=== PATIENT | male | born 1950 | race Caucasian/White ===

== ENCOUNTER 2019-10-19 15:30 | Inpatient (IN) | payer MEDICARE, OTHER, SELFPAY ==
[2019-10-19 15:51] VITALS: BP 134/89; PULSE 83; RESP 16; TEMP 36.9; O2SAT 97; BMI 27.1
[2019-10-19 16:54] VITALS: BMI 27.1
[2019-10-19 17:02] VITALS: BMI 27.1
[2019-10-19] MEDS: Jevity 1.5 1,000 ML 60 ML GT (17:59)
[2019-10-19 19:25] VITALS: BP 143/92; PULSE 78; RESP 16; TEMP 36.8; O2SAT 96
[2019-10-19 19:30] VITALS: PULSE 78; RESP 16; O2SAT 96; BMI 27.1
[2019-10-19 19:51] VITALS: O2SAT 98
[2019-10-19] MEDS: Carvedilol 12.5 MG Tablet GT (19:54)
[2019-10-19] MEDS: Senna/Docusate Sodium 1 Tablet 2 TABLET PO (19:54)
[2019-10-19] MEDS: Atorvastatin Calcium 40 MG Tablet GT (19:54)
[2019-10-19] MEDS: QUEtiapine 25 MG Tablet GT (19:55)
[2019-10-19] MEDS: cloNIDine HCl 0.2 MG Tablet GT (19:55)
[2019-10-19] MEDS: Acetaminophen 325 MG Tablet 650 MG PO (20:15)
--- NOTE | 2019-10-20 01:30 | NURSING ---
1930 pt is restless in the bed rolling around and putting sheet and pillows on the floor . pt assisted in using the urinal and voided 100c of clear strong smelling noble urine. bladder scan showed 473cc in the pt bladder. clinical findings completed and pt reports that he is having flank pain and tylenol given as per order 1999 pt continues to be restless in the bed with tube feed wrapped under his body and arm. pt repositioned and tube feed straightened, pt sticking feet and legs out the rails and calling out for family, staff assurance pt that he was safe and family was at home and knew were he was. pt repositioned for comfort 2029 pt remains restless and reports flank pain improved at this time. pt assisted with repositioning and pillow and sheet put back on the bed for pt . 2099 pt appears to be be sleeping 0 pt restless and checked by booth supervisor for incontinence, pt is dry at this time 2200 sheet and pillow placed back on the bed and call light in reach pt awake and stated that the wolves were getting his dogs 2300pt check for incontinence and remains dry resting with eyes closed 0000 pt restless at this time and reports that he is uncomfortable, pt had hob and foot of bed up in high positions, bed repositioned to hob at 30degrees and hob and foot locked out 0100 pt noted to have a moderate incontinence of urine in the bed, pt cleansed and bladder scan completed and value was 384cc. pt reports having discomofort in the his bladder area, rn aware and pt was straight cathed for 400cc of strong smelling clear noble urine. pt reports that he is feeling better. pt washed and bed linens changed with call light in reach
--- NOTE | 2019-10-20 05:32 | NURSING ---
Reviewed and agree with math tutor documentation and charting.
[2019-10-20 06:05] LABS: Absolute Lymphocyte Count 1.69 X10^3/uL (0.83-4.51); Absolute Neutrophil Count 8.5 X10^3/uL (2.0-7.7); Basophil# 0.08 X10^3/uL; Basophil% 0.7 % (0-1); Eosinophil# 0.22 X10^3/uL; Eosinophils% 1.9 % (0-5); Hematocrit 43.8 % (40-54); Hemoglobin 13.9 g/dL (13.0-16.5); Lymphocyte # 1.69 X10^3/ul (4.0); Lymphocyte % 14.3 % (19-41); Mean Corp Hgb Conc 31.7 g/dL (32-36); Mean Corpuscular Hgb 29.5 pg (27.0-32.0); Mean Platelet Vol. 10.9 fl (6.2-12.0); Monocyte# 1.07 X10^3/uL; Monocyte% 9.1 % (0-10); NRBC Flagged by Analyzer 0 % (0-5); Neutrophil # 8.52 X10^3/uL (2.7-7.7); Neutrophil % 72.1 % (47-70); Platelet Count 440 K/mm3 (150-450); RBC Distribution Width CV 14.1 % (11.6-14.6); Red Blood Count 4.71 M/mm3 (4.6-6.2); White Blood Count 11.8 K/mm3 (4.4-11.0)
[2019-10-20 06:37] LABS: ALB/GLOB Ratio 0.6 RATIO (0.9-2.4); AST(SGOT) 49 U/L (15-37); Alanine Aminotransfer ALT/SGPT 76 U/L (16-61); Alkaline Phosphatase 180 U/L (45-117); Anion Gap 7 (5-15); BUN 27 mg/dL (7-18); BUN/Creat Ratio 43.1 RATIO (10-20); Calcium,Total 9.7 mg/dL (8.5-10.1); Chloride 101 mmol/L (98-107); Creatinine, Serum 0.63 mg/dL (0.70-1.30); EST Glomerular Filtration Rate 135 mL/min (>60); Est Glom Filt Rate - Afr Amer 163 mL/min (>60); Estimated Creatinine Clearance 76.52 ml/min; Globulin 5.1 g/dL (2.2-4.2); Glucose 105 mg/dL (74-106); Magnesium 2.5 mg/dL (1.6-2.6); Phosphorus 3.9 mg/dL (2.5-4.9); Potassium 3.9 mmol/L (3.5-5.1); Protein, Total 8.1 g/dL (6.4-8.2); Sodium Level 137 mmol/L (136-145)
--- NOTE | 2019-10-20 06:54 | NURSING ---
pt continues to be restless and moving about in the bed. pt glasses were found on the floor, staff places the glasses on the overbed table. pt had yet to void since being straight cathed at 0100, current bladder scan was 309
[2019-10-20 06:57] VITALS: O2SAT 96
[2019-10-20 08:57] VITALS: BP 147/98; PULSE 82; RESP 16; TEMP 36.3; O2SAT 96
[2019-10-20] MEDS: cloNIDine HCl 0.2 MG Tablet GT ×2 (09:50→21:22)
[2019-10-20] MEDS: Aspirin 81 MG TAB.CHEW GT (09:50)
[2019-10-20] MEDS: Senna/Docusate Sodium 1 Tablet 2 TABLET PO (09:51)
[2019-10-20] MEDS: Carvedilol 12.5 MG Tablet GT ×2 (09:51→21:22)
[2019-10-20] MEDS: NYSTATIN 500,000 UNIT/5 ML UDC 500000 UNIT PO ×2 (09:52→14:07)
[2019-10-20] MEDS: QUEtiapine 25 MG Tablet 12.5 MG PO (09:52)
[2019-10-20] MEDS: Jevity 1.5. 1,000 ML Bottle 250 ML GT ×3 (14:00→21:23)
--- NOTE | 2019-10-20 16:10 | CASEMGMT ---
Social Work Discussed code status with pt. Pt would like to be DNR-CCA, no intubation. Nursing notified. Kailee Woody, [employer]
--- NOTE | 2019-10-20 16:26 | PCM.HP.STD ---
Problem List (1) Atrial fibrillation Status: Acute Comment: new diagnosis (2) Acute right MCA stroke Status: Acute Comment: O 10/07/19 initially a R MCA ischemic/possibly embolic CVA and then hemorrhagic conversion after TPA (3) Status post administration of tPA (rtPA) in a different facility within the last 24 hours prior to admission to current facility Status: Acute Comment: 10/07/19 (4) Hypertension Status: Chronic Qualifiers: Hypertension type: essential hypertension Qualified Code(s): I10 - Essential (primary) hypertension (5) Stenosis of left vertebral artery Status: Chronic Comment: without infarction (6) Intracranial hemorrhage Status: Acute Comment: following TPA (7) Alcohol dependence Status: Chronic (8) Internal carotid artery occlusion Status: Acute Qualifiers: Laterality: right Qualified Code(s): I65.21 - Occlusion and stenosis of right carotid artery Comment: presumed embolic (9) SAMMY (obstructive sleep apnea) Status: Chronic (10) Status post insertion of percutaneous endoscopic gastrostomy (PEG) tube Status: Acute (11) Abnormal LFTs Status: Acute (12) Subarachnoid hemorrhage Status: Acute (13) Dysphagia Status: Acute Qualifiers: Dysphagia type: oropharyngeal phase Qualified Code(s): R13.12 - Dysphagia, oropharyngeal phase (14) Coronary artery disease Status: Chronic (15) Presence of bare metal stent in right coronary artery Status: Acute Comment: 2002 (16) Edentulous Status: Chronic (17) Encephalopathy acute Status: Acute Comment: due to CVA with agitation/behavioral disturbance requiring Seroquel (18) 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 Possibly due to Seroquel. K and Mag are WNL. (21) Urine retention Status: Acute (22) Left-sided neglect Status: Acute History of Present Illness Date of Admission: 10/19/19 Chief Complaint: debility due to R MCA CVA and hemorrhagic conversion after TPA with Left side weakness, oropharyngeal dysphagia, encephalopathy with behavioral disturbance The patient is a 69 year old M with a past medical history of hypertension, alcohol dependence, nicotine dependence (quit smoking and now is using Nicorette gum) , coronary artery disease with history of inferior wall NC and bare-metal stent to the right coronary artery in 2002 and recent R MCA CVA. On 10/07/19 he had a fall at home and struck his head. He presented to the ED with left side weakness and a non-contrasted CT brain showed no hemorrhage. The initial NIH was 6. He received TPA and then had intracerebral hemorrhage and SAH. He was transferred to the neuro intensive care unit at [facility]. No intervention was indicated. He was noted to be in AF and he had no hx of AF prior to the stroke. Troponin was elevated. He was seen by cardiology and had a stress test that was negative for ischemia. The EF was 53%. An ECHO showed an EF of 55% with an RVSP of 34 which is consistent with mild pulmonary HTN. EKG showed LAHB, PVC's and an old IWMI. He developed an encephalopathy with behavioral disturbance and was placed on Seroquel. He had severe dysphasia and a PEG tube was inserted. He was transferred to the IPRU at [facility] on 10/19/19 for 3 hours of therapy daily to restore him at or near his prior level of function/independence. A HGBA1C at [facility] was 5.6%. We did not receive results of a lipid panel. Lab in the AM at [facility] on 10/20/19 showed an elevated white blood cell count at 11.8 with 72.1% neutrophils and 1.9% immature granulocytes. Hemoglobin was normal at 13.9 and platelets were also within normal limits. MCV and MCH were both normal. Potassium was 3.9. BUN was elevated at 27 with a creatinine of 0.63 and a BUN/creatinine ratio of 43.1. Magnesium and calcium are within normal limits. The AST is elevated at 49 and the ALT is 76 with an alkaline phosphatase of 180. Total bilirubin was within normal limits. All paperwork from [facility] was reviewed. Medication reconciliation was reviewed. Patient is currently on aspirin 81 mg daily, atorvastatin 40 mg daily, I will 12.5 mg twice daily, clonidine 0.2 mg twice daily, Seroquel 25 mg twice daily and Isosource tube feed. Past Medical History Past Medical History (Chronic Problems): Chronic Problems Hypertension (Chronic) Stenosis of left vertebral artery (Chronic) without infarction Alcohol dependence (Chronic) SAMMY (obstructive sleep apnea) (Chronic) Coronary artery disease (Chronic) Edentulous (Chronic) Mass of perirectal soft tissue (Chronic) R buttock adjacent to the anus......tells me he had an infection drained at the site and there is a cicatrix there Allergies alteplase Adverse Reaction (Severe, Unverified 10/19/19 17:21) PT UNSURE OF REACTION intracrainal hemorrhage Home Medications: Ambulatory Orders Medication Instructions Recorded Albuterol Aerosols [Ventolin 3 ml INHALATION Q4H PRN PRN 10/19/19 Aerosols] Aspirin [Aspirin, Baby] 81 mg NG DAILY 10/19/19 Atorvastatin Calcium [Lipitor] 40 mg NG QHS 10/19/19 Carvedilol [Coreg] 12.5 mg GT BID 10/19/19 Clonidine HCl [Catapres] 0.2 mg GT BID 10/19/19 Quetiapine Fumarate [Seroquel] 25 mg GT QHS 10/19/19 Surgical History: - - drainage of a R perirectal infection - remote. PEG tube insertion October 2019 for dyspghagia due to stroke Psychiatric History: No pertinent psych hx Lives: Spouse/ Significant Other - His 's name is Pati Smoking Status: Never smoker Tobacco Use: Non-smoker Alcohol: Heavy - tells me that he quit 1 month ago and can not tell me how much he was drinking Drugs: None - *Family History Maternal History Items: - - pt can not tell me about his FH at this time Review of Systems Constitutional: Reports: Weakness. Denies: Chills, Fever, Weight Change Eyes: Denies: Vision Change HEENT: Reports: Difficulty Swallowing. Denies: Head Aches, Nasal Congestion, Sinus Congestion, Sinus Drainage, Sore Throat Cardiovascular: Denies: Chest Pain, Chest Tightness, Edema, Light Headedness, Orthopnea, Palpitations Respiratory: Reports: Shortness of Breath - in the mornings he tells me. Denies: Cough, Shortness of breath at rest, Sputum production Gastrointestinal: Denies: Abdominal Pain, Constipation, Diarrhea, Dyspepsia, Nausea, Vomiting Genitourinary: Reports: Retention. Denies: Dysuria Musculoskeletal: Denies: Joint Pain, Joint Tenderness Skin: Reports: - - he has a left taylor-rectal mass at sit of previous drainage of infection. There is also a nodule at the top proximal to the superior aspect of the gluteal cleft with a small white dot...NT with no DC. Denies: Jaundice, Rash, Wounds Neurological: Reports: Balance problems, Change in Speech, Confusion. Denies: Focal weakness, Headaches, Numbness, Tingling, Tremor, Seizures Psychiatric: Denies: Anxiety, Depression, Homicidal Ideations, Suicidal Ideations Hematologic/ Lymphatic: Denies: Easy Bruising, Easy Bleeding VTE Information - Inpt Only VTE Present on Admission: No VTE Mechan Device Prophylaxis: SCD's, Knee High ELOINA Hose VTE Pharm Prophylaxis ordered?: No Reason prophylaxis not ordered:: Treatment Not Indicated - had recent intracerebral bleed and SAH Patient Problems: Active and Suspected Problems Atrial fibrillation (Acute) new diagnosis Acute right MCA stroke (Acute) O 10/07/19 initially a R MCA ischemic/possibly embolic CVA and then hemorrhagic conversion after TPA Status post administration of tPA (rtPA) in a different facility within the last 24 hours prior to admission to current facility (Acute) 10/07/19 Intracranial hemorrhage (Acute) following TPA Internal carotid artery occlusion (Acute) presumed embolic Status post insertion of percutaneous endoscopic gastrostomy (PEG) tube (Acute) Abnormal LFTs (Acute) Subarachnoid hemorrhage (Acute) Dysphagia (Acute) Presence of bare metal stent in right coronary artery (Acute) 2002 Encephalopathy acute (Acute) due to CVA with agitation/behavioral disturbance requiring Seroquel Stage II pressure sore (Acute) Abdomen-around the PEG tube QT prolongation (Acute) acute....not mentioned on the EKG done at [facility]. Possibly due to Seroquel. K and Mag are WNL. Urine retention (Acute) Left-sided neglect (Acute) - Physical Exam Vitals/I&O's: Vital Signs Temp Pulse Resp BP Pulse Ox 97.4 F L 82 16 147/98 H 96 10/20/19 08:57 10/20/19 08:57 10/20/19 08:57 10/20/19 08:57 10/20/19 08:57 Oxygen Delivery Method Room Air Weight: 179 lb 3.773 oz Body Mass Index (BMI) 27.1 Intake and Output for Last 24 Hours 10/18/19 10/19/19 10/20/19 23:59 23:59 23:59 Intake Total 300 / 300 300 / 300 Output Total 200 / 200 400 / 400 Balance 100 / 100 -100 / -100 General: Alert, Cooperative, No apparent distress, Well developed, Well nourished, Disoriented - he is oriented to person. He thought it was May but, he knew it was 2019 HEENT: Atraumatic, PERRLA, EOMI, Normocephalic Oral: Dry Mucosa, - - he has some white discoloration on the sides of the tongue but, he denies painful tongue Neck: Supple, No JVD, No Nodes, No Nuchal Rigidity, Trachea Midline, Carotid Bruit, Right - soft Lungs: Clear to auscultation, - - He is lying flat in bed and he is not tachypneic and has no conversational dyspnea. Cardiovascular: Normal S1, Normal S2, No murmurs, Irregular Rate, No rub noted, No Gallop, - - EKG shows atrial fibrillation/flutter at a rate of [address] and T wave changes. There is poor R wave progression from V1 through V3. The QTC is prolonged at 495 ms. Left axis deviation Abdomen: Bowel Sounds Present, Soft, Non Tender, Non-Distended, - - he has an erosion at the superior pole of the PEG which appears to be due to pressure from the abdominal binder on the PEG. There is no erythema and it is non-tender. No purulent DC and no odor Extremities: No clubbing, No cyanosis, No edema, No Calf Tenderness, Diminished Peripheral Pulses - The dorsalis pedis pulses are diminished bilaterally however the posterior tibial pulses are strong bilaterally. Radial pulses are 3/3 bilaterally. Skin: No rashes, - - There is a nodule at the superior end of the gluteal cleft on the midline with a small white dot in the center. No discharge could be expressed and the nodule is nontender. There is a cicatrix in the left perianal area and there is a mass at this site and the patient states that he had a prior infection and it was drained.The mass is not fluctuant and there is no erythema or increased warmth to touch Musculoskeletal: No Muscle Wasting Lymphatic: No Cervical, Supraclavicular, or Inguinal Adenopathy Neurological: Cranial nerves II-XII grossly intact, - - Alert: YES LOC/Orientation: How old: did not know What month: said May and it is october Dysarthria: mild LOC Commands: Opens eyes: yes Make a fist: yes Facial palsy: none Best Gaze (horitzontal): intact Visual catherine: intact with no demonstrable defect Motor Left ARM : could not lift off the bed Motor Left LEG: could not lift off the bed.....he was able to rotate the hip and he had plantar flexion and dorsiflexion but they are both weak Motor Right ARM: 5/5 Motor Right LE/5 Sensation: he has decreased sensation on the left side Limb ataxia: can not assess the arm.......he did not have ataxia with the left leg Visual catherine: intact Neglect: He has left side neglect of the Left arm and leg but, not the Left face Babinski: did not check Psych/Mental Status: Appropriate, Flat Affect Laboratory Results 10/20/19 05:41: WBC 11.8 H, RBC 4.71, Hgb 13.9, Hct 43.8, MCV 93.0, MCH 29.5, MCHC 31.7 L, RDW Std Deviation 48.0 H, RDW Coeff of Misty 14.1, Plt Count 440, MPV 10.9, Immature Gran % (Auto) 1.900 H, Neut % (Auto) 72.1 H, Lymph % (Auto) 14.3 L, [place] % (Auto) 9.1, Eos % (Auto) 1.9, Baso % (Auto) 0.7, Absolute Neuts (auto) 8.5 H, Absolute Lymphs (auto) 1.69, Nucleated RBC % 0 10/20/19 05:41: Sodium 137, Potassium 3.9, Chloride 101, Carbon Dioxide 29.0, Anion Gap 7, BUN 27 H, Creatinine 0.63 L, Estim Creat Clear Calc 76.52, Est GFR (MDRD) Af Amer 163, Est GFR (MDRD) Non-Af 135, BUN/Creatinine Ratio 43.1 H, Glucose 105, Calcium 9.7, Phosphorus 3.9, Magnesium 2.5, Total Bilirubin 0.50, AST 49 H, ALT 76 H, Alkaline Phosphatase 180 H, Total Protein 8.1, Albumin 3.0 L, Globulin 5.1 H, Albumin/Globulin Ratio 0.6 L Current Medications Acetaminophen (Tylenol) 650 mg PO Q6H PRN PRN PRN Reason: Pain Score 1-10/10 Last Admin: 10/19/19 20:15 Dose: 650 mg Documented by: Albuterol Sulfate (Ventolin Aerosols) 2.5 mg INHALATION Q4H PRN PRN PRN Reason: SOB/Wheezing Aspirin (Aspirin, Baby) [address] [facility] Last Admin: 10/20/19 09:50 Dose: 81 mg Documented by: Atorvastatin Calcium (Lipitor) [address] [facility] Last Admin: 10/19/19 19:54 Dose: 40 mg Documented by: Bisacodyl (Dulcolax) 10 mg RECTAL .PRN X 1 PRN PRN Reason: Constipation Carvedilol (Coreg) 12.[address] [facility] Last Admin: 10/20/19 09:51 Dose: 12.5 mg Documented by: Clonidine (Catapres) 0.[address] [facility] Last Admin: 10/20/19 09:50 Dose: 0.2 mg Documented by: Enteral Nutritional Formula (Jevity 1.5) 250 ml GT 6X/DAY [facility] Last Admin: 10/20/19 14:00 Dose: 250 ml Documented by: Magnesium Hydroxide (Milk Of Magnesia) 30 ml PO .PRN X 1 PRN PRN Reason: Constipation Nystatin (Nystatin) 500,000 unit PO 4X/DAY [facility] Last Admin: 10/20/19 14:07 Dose: 500,000 unit Documented by: Quetiapine Fumarate (Seroquel) 37.[address] [facility] Quetiapine Fumarate (Seroquel) 12.[address] [facility] Last Admin: 10/20/19 09:52 Dose: 12.5 mg Documented by: Senna/Docusate Sodium (Senokot-S, Taylor-Colace) [address] [facility] Last Admin: 10/20/19 09:51 Dose: 2 tablet Documented by: Assessment/Plan All Active Problems Atrial fibrillation (Acute) Acute right MCA stroke (Acute) Status post administration of tPA (rtPA) in a different facility within the last 24 hours prior to admission to current facility (Acute) Intracranial hemorrhage (Acute) Internal carotid artery occlusion (Acute) Status post insertion of percutaneous endoscopic gastrostomy (PEG) tube (Acute) Abnormal LFTs (Acute) Subarachnoid hemorrhage (Acute) Dysphagia (Acute) Presence of bare metal stent in right coronary artery (Acute) Encephalopathy acute (Acute) Stage II pressure sore (Acute) QT prolongation (Acute) Urine retention (Acute) Left-sided neglect (Acute) Impressions 1. post stroke debility with Left side weakness, dysphagia, dysarthria 2. R MCA M1 branch embolic CVA - received TPA 3. Intracerebral hemorrhage and SAH after receiving TPA - did not require any surgical intervention 4. PEG insertion for severe dysphagia 5. encephalopathy with behavioral disturbance 6. AF/flutter - new diagnosis 7. HTN 8. hx of Alcohol use/abuse......tells me that he quit 1 month ago 9. Pressure sore at the PEG site 10. Left taylor-rectal mass at the site of I&D for infection 11. urine retention 12. leukocytosis with a left shift 13. dehydration with a BUN/CREAT ratio of 43.1 14. Left vertebral artery stenosis without infarction 15. Obstructive sleep apnea 16. Abnormal LFTs 17. Coronary artery disease with history of inferior wall NC and a bare-metal stent in the right coronary artery in 2002 18. Edentulous-has dentures but they are at home 19. Nodule at the proximal end of the gluteal cleft 20. QTc prolongation - continue to monitor since he is on Seroquel. PLAN PT for gait stability OT for ADL's ST for evaluation Analgesics as needed Bowel protocol Fall precautions Assess for Anxiety/Depression GI prophylaxis not indicated at this time. Patient has no history of peptic ulcer disease and has no complaints. DVT prophylaxis with SCDs and ELOINA escalante. Follow up with neurology, cardiology and PCP following DC from [facility] Rehab Lipid profile in the AM Repeat MRI of the brain in 4 weeks and if bleeding is stable then can start OAC Find out from his if he ever had a sleep study and if he has CPAP at home and also how much he drinks. He did not sleep well last night and has been confused and restless today....will increase the Seroquel to 37.5 mg at HS.......he had 12.5 mg this morning and was better able to cooperate with therapy after that. Change the tube feeds to Jevity 1.5 and begin bolus feedings rather than continuous feedings to facilitate working with therapy. IF the urine residuals continue to be > 250cc will insert a miranda Check a UA and urine culture - he had a miranda at [facility] nothing per mouth for now Repeat an EKG on Thursday Inpatient E&M: 15686 Init Hosp L3
[2019-10-20 17:00] VITALS: BMI 27.1
--- NOTE | 2019-10-20 17:27 | EKG12_ITS ---
Test Reason : AM EKG Blood Pressure : / mmHG Vent. Rate : 088 BPM Atrial Rate : 340 BPM P-R Int : 000 ms QRS Dur : 088 ms QT Int : 412 ms P-R-T Axes : 000 -23 044 degrees QTc Int : 498 ms Atrial fibrillation Nonspecific ST and T wave abnormality Prolonged QT Abnormal ECG Confirmed by RUBY NELSON, GAYE ([id number]), brands editor ADRIEL BRADEN ([id number]) on 10/25/2019 11:00:20 AM Referred By: JAYNA Confirmed By:GAYE BELTRAN MD
--- NOTE | 2019-10-20 19:45 | NURSING ---
PT STRAIGHT CATHED WITHOUT DIFFICULTY FOR 200 ML SK CLOUDY JUNO URINE. SPECIMEN SENT. DR DORANTES INFORMED THAT PT HAS A #8 HEADACHE. OK TO GIVE PT TYLENOL FOR PAIN.
[2019-10-20 19:46] LABS: Bacteria 0 SEEN /hpf (None Seen); Mucous, Urine 0 SEEN /hpf (<or=2+); Red Blood Cells-Urine 0 SEEN /hpf (0-5); White Blood Cells 0 SEEN /hpf (0-5)
[2019-10-20 19:50] LABS: Color, Urine Yellow (Yellow); Glucose, Dipstick Normal (Normal); Ketone-Dipstick Negative (Negative); Leukocyte Esterase-Dipstick Negative /ul (Negative); Nitrite-Dipstick Negative (Negative); Occult Blood-Urine Negative /ul (Negative); Protein-Dipstick Negative (Negative); Specific Gravity, Urine 1.015 (1.002-1.030); Urine Bilirubin Dipstick Negative (Negative); Urine Clarity Sl. Cloudy (Clear); Urine Urobilinogen 8 mg/dl (Normal)
[2019-10-20] MEDS: Acetaminophen 325 MG Tablet 650 MG PO (19:52)
[2019-10-20 20:04] LABS: Amorphous Sediment 2+ PHOS; Squamous Epithelial Cells - UA 0-5 SEEN /hpf (0-5)
[2019-10-20] MEDS: 0.9% Normal Saline 1,000 ML 125 ML IV (20:04)
[2019-10-20 20:29] VITALS: BP 139/93; PULSE 95; RESP 18; TEMP 36.8; O2SAT 95
[2019-10-20] MEDS: QUEtiapine 25 MG Tablet 37.5 MG GT (21:21)
[2019-10-20] MEDS: Atorvastatin Calcium 40 MG Tablet GT (21:22)
[2019-10-21] MEDS: 0.9% Normal Saline 1,000 ML 125 ML IV (03:00)
[2019-10-21] MEDS: Haloperidol 1 MG Tablet SL (03:15)
--- NOTE | 2019-10-21 03:24 | NURSING ---
PT RESTLESS IN BED. HAS PULLED IV POLE ONTO BED NEXT TO HIM. NO SIGNS OF INJURY.PT DENIES THAT POLE HIT HIM AND DENIES PAIN. ORIENTED TIME PERSON, PLACE AND MONTH. PT PLACED ON BEDPAN AND PRODUCES VERY SMALL AMT OF SOFT BROWN STOOL. MEDICATED WITH HALDOL.
[2019-10-21] MEDS: Jevity 1.5. 1,000 ML Bottle 250 ML GT ×6 (05:06→19:57)
[2019-10-21 05:37] VITALS: BP 122/67; PULSE 81
--- NOTE | 2019-10-21 06:00 | NURSING ---
ORTHOSTATICS INITIATED. PT WITH GREAT DIFFICULTY SITTING ON SIDE OF BED WITH 2 STAFF. BP MACHINE UNABLE TO OBTAIN SITTING BP AFTER MULTIPLE ATTEMPTS, PT BECOMING NAUSEATED AND DIZZY. RETURNED TO SUPINE POSITION WITH RELIEF.
[2019-10-21 06:34] LABS: Anion Gap 7 (5-15); BUN 25 mg/dL (7-18); BUN/Creat Ratio 43.6 RATIO (10-20); Calcium,Total 8.9 mg/dL (8.5-10.1); Chloride 106 mmol/L (98-107); Cholesterol 96 mg/dL (200); Creatinine, Serum 0.57 mg/dL (0.70-1.30); EST Glomerular Filtration Rate 150 mL/min (>60); Est Glom Filt Rate - Afr Amer 181 mL/min (>60); Estimated Creatinine Clearance 76.52 ml/min; Glucose 113 mg/dL (74-106); High Density Lipoprotein 23 mg/dL; Sodium Level 136 mmol/L (136-145); Triglycerides 102 mg/dL; Very Low Density Lipoprotein 20 mg/dL (5-40)
[2019-10-21] MEDS: QUEtiapine 25 MG Tablet 12.5 MG GT (07:41)
[2019-10-21] MEDS: Carvedilol 12.5 MG Tablet GT ×2 (07:41→23:12)
[2019-10-21] MEDS: cloNIDine HCl 0.2 MG Tablet GT ×2 (07:41→23:12)
[2019-10-21] MEDS: Aspirin 81 MG TAB.CHEW GT (07:41)
[2019-10-21 09:18] VITALS: BP 132/68; PULSE 83; RESP 18; TEMP 36.7; O2SAT 96
--- NOTE | 2019-10-21 10:00 | NURSING ---
Called PCP office Dr Lorenzo to verify patients allergies. They have no allergies on file for patient since patient is a poor historian. Office aware of new allergy reported from prior hospital.
--- NOTE | 2019-10-21 12:37 | PCM.RU.PYE ---
Admission Information Primary Diagnosis:: debility due to R MCA stroke Status Changes from Prescreening?: No changes Identified Actual Problem List:: Cognitve Impr/Memory Loss, Bladder Incontinence, Alteration in Sleep, Mobility Impaired, Self Care Deficit, Alteration-Leisure Activ. Potential Problem List:: DVT, Bleeding, Infection, UTI, Aspiration, Falls, Skin Integrity, Depression Risk of Complications DVT: ELOINA Hose, Sequential Compression Device Bleeding: Monitor Lab Values, Nursing to Teach Precautions for anti-coagulation therapy., Wound, if applicable, to be assessed every shift., Stroke patients assessed for lethargy or change in status. Infection: Clinical Staff to Monitor for S/S of infection:, S/S of infection include fever, redness, warmth, etc. Urinary Tract Infection: Monitor for frequency, burning, discomfort, or incontinence., Nursing will obtain urine sample for urinalysis and C&S when ordered. Aspiration: Clinical staff will monitor for coughing, drooling, congestion., Speech will evaluate swallowing and dsyphasia., Nursing will monitor patient swallowing during meals. Falls: Patient will be evaluated for Fall Precautions, Patient will be placed on Fall Precautions as indicated per protocol. Skin Breakdown: Nursing will assess skin daily using assessment tool., Nursing will place on Skin Breakdown Precautions as indicated. Pain: Clinical staff will assess patient's pain level per protocol., Medications will be given, if needed, and the pain level reassessed., Other methods: Massage, distraction, decrease stimulus, etc. used PRN. Plan of Care Patient requires physician specializing in physical medicine and rehab oversight to provide close medical supervision of rehab issues including: Pain Management, Sleep Problems, Bowel and Bladder, Medical and co-morbidity Management, DVT prophylaxis, Rehabilitation Leadership, Coordination of treatment team Patient needs Physical Therapy: For a minimum of 1 hour, At least 5 out of 7 days Patient needs Physical Therapy to improve:: Mobility, Mobility, Mobility, Strengthening, Transfers, Stretching, ROM, Endurance, Stairs, Gait, Balance Patient needs Occupational Therapy: For a minimum of 1 hour, At least 5 out of 7 days Patient needs Occupational Therapy to improve ADL's incl.: Eating, Grooming, Bathing, Dressing, Toileting, Toilet transfers, Community Reintegration, Higher functioning activities, Household tasks, Adaptive Equipment, Splinting, Other activities as determined Patient requires speech therapy: For a minimum of 1 hour, At least 5 out of 7 days Patient requires speech therapy for: Swallowing, Cognition, Language Skills, Compensatory Strategies Patient requires 24/ Rehabilitation Nursing for: Pain Issues, Identifying and preventing risk factors, Monitoring and reporting current medical conditions, Assisting with ambulation, transfer, and all ADL's, Teaching patients about disease process and medications, Family teaching, Providing safe environment, Bowel and Bladder Issues, Skin integrity, Medication Management Patient needs Application Packager/ Case Management for: Discharge Planning, Arranging Home Equipment or Services, Family Interventions Patient needs Dietary and Nutrition Services for: Adequate Nutrition, Nutritional Supplements, Nutritional Education Goals Patient will remain: free from falls, or injury at time of discharge. Patient will perform bed mobility at: MOD I level of assist. Patient will complete transfers from bed to chair at: MOD I level of assist. Patient will ambulate: 100 feet, with MOD I assist, with LRD Patient will complete upper body dressing at: MOD I level of assist. Patient will complete lower body dressing at: MOD I level of assist. Patient will complete toileting at: MOD I level of assist. Patient will perform bathing at: MOD I level of assist. Patient will complete grooming at: MOD I level of assist. Patient will complete home management skills at: MOD I level of assist. Patient will achieve: 12 stairs, at MOD I assist Patient will have pain level of: of 3 or less Patient's skin will: remain intact, free from infection. Patient will receive: adequate nutrition. Discharge Planning Estimated Length of stay (days): 21 Anticipated D/C Destination: to be determined Was Preadmission Assessment Accurate?: Yes
--- NOTE | 2019-10-21 12:37 | PCM.PN.BLA ---
Progress Note Much more alert today after hydration and speech reports he did a lot better with swallowing today and she is going to start sips and chips. Afebrile Heart rate is within normal limits Blood pressures are not adequately controlled and have ranged from 132/68 currently to 147/98. Fluid balance on 10/20/2019 was +800....but he is incontinent of urine so this may not be accurate Has been incontinent of urine. He has had 2 post void residuals of > 250. He is not on Flomax or avodart. All lab was personally reviewed. Potassium is 5.0 today and the BUN is 25 with a creatinine of 0.57, down from 0.63. Fasting blood sugar is 113. LDL was 53 and the HDL is low at 23. UA was negative for infection. All PT/OT/ST notes were reviewed. Pt did not sleep well last night per nursing. He is very restless. He is still confused but not agitated Lungs - clear H - irreg irreg with controlled ventricular response, no gallop lying flat in bed with no SOB no peripheral edema. Impressions 1. urine retention - repeat post void residuals X 3 and if he is still retaining > 250 then insert a Butt and start Flomax 2. severe dysphagia with PEG....tolerating the bolus feedings without residual 3. encephalopathy - due to CVA +/- long hx of ETOH abuse. 4. dehydration - mentation improved a little today possibly due to hydration 5. pressure ulcer at the PEG site - no sign of infection 6. SAMMY 7. Low HDL 8. 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
[2019-10-21 12:41] VITALS: BMI 27.1
--- NOTE | 2019-10-21 13:00 | NURSING ---
Dr. Culver aware that orthostatic VS could not be obtained yet by night warehouse selector nor day shift due to patient unable to tolerate standing and changing positions for a long time.
[2019-10-21 14:28] VITALS: O2SAT 95
--- NOTE | 2019-10-21 15:55 | CHAPLAIN ---
Type of Pastoral Visit _x__ Initial Visit ___ Follow-up Visit ___ On-call Visit ___ General Patient Visit ___ Spiritual Assessment ___ Family Conference ___ Bereavement ___ Rapid Response ___ Code Blue ___ Other (describe below) Pastoral Care Referral From _x__ Patient ___ Family ___ Nurse ___ Physician ___ Radio Time Salesperson ___ Electrical Designer Drafter ___ Other (describe below) Sacrament/Intervention _x__ Active listening ___ Anointing ___ Hindu ___ Bereavement ___ Communion ___ Leesa exploration ___ ___ Life review ___ Prayer ___ Reconciliation ___ Sacrament of Sick _x__ Supportive presence ___ Wedding ___ Other (describe below) Pastoral Comments patient pleasant; 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
[2019-10-21] MEDS: QUEtiapine 25 MG Tablet 37.5 MG GT (19:37)
[2019-10-21 20:00] VITALS: BP 147/94; PULSE 87; RESP 18; TEMP 36.6; O2SAT 96
[2019-10-21] MEDS: 0.9% Saline Lock 10 ML Syringe IV (23:12)
[2019-10-21] MEDS: Atorvastatin Calcium 40 MG Tablet GT (23:12)
[2019-10-22 05:24] VITALS: BP 139/73; BP 151/106; BP 151/73; PULSE 101; PULSE 80; PULSE 98
--- NOTE | 2019-10-22 05:55 | EKG12_ITS ---
Test Reason : DYSRHYTMIA Blood Pressure : / mmHG Vent. Rate : 097 BPM Atrial Rate : 288 BPM P-R Int : 000 ms QRS Dur : 088 ms QT Int : 390 ms P-R-T Axes : 000 -16 032 degrees QTc Int : 495 ms Atrial fibrillation Septal infarct , age undetermined T wave abnormality, consider anterior ischemia Abnormal ECG No previous ECGs available Confirmed by RUBY NELSON, GAYE ([id number]), general expeditor ADRIEL BRADEN ([id number]) on 10/25/2019 11:00:37 AM Referred By: JAYNA Confirmed By:GAYE BELTRAN MD
[2019-10-22] MEDS: Jevity 1.5. 1,000 ML Bottle 250 ML GT ×6 (06:13→21:03)
[2019-10-22 07:47] VITALS: BP 139/73; PULSE 80; RESP 18; TEMP 36.5; O2SAT 95
[2019-10-22] MEDS: QUEtiapine 25 MG Tablet 12.5 MG GT (09:23)
[2019-10-22] MEDS: Carvedilol 12.5 MG Tablet GT ×2 (09:24→21:02)
[2019-10-22] MEDS: Aspirin 81 MG TAB.CHEW GT (09:24)
[2019-10-22] MEDS: cloNIDine HCl 0.2 MG Tablet GT ×2 (09:24→21:02)
[2019-10-22 11:59] VITALS: BMI 27.1
[2019-10-22 16:34] VITALS: O2SAT 97
[2019-10-22] MEDS: NYSTATIN 500,000 UNIT/5 ML UDC 500000 UNIT PO ×2 (18:37→21:04)
[2019-10-22 19:50] VITALS: BP 133/65; PULSE 82; RESP 16; TEMP 37.2; O2SAT 95
[2019-10-22] MEDS: Atorvastatin Calcium 40 MG Tablet GT (21:02)
[2019-10-22] MEDS: QUEtiapine 25 MG Tablet 37.5 MG GT (21:03)
[2019-10-22 23:03] VITALS: BMI 27.1
[2019-10-23 05:00] VITALS: BP 114/76; BP 128/89; BP 136/74; PULSE 105; PULSE 82; PULSE 90
[2019-10-23] MEDS: Jevity 1.5. 1,000 ML Bottle 250 ML GT ×6 (05:14→20:08)
[2019-10-23 07:00] VITALS: BP 136/74; PULSE 82; RESP 17; TEMP 36.4; O2SAT 96
[2019-10-23] MEDS: QUEtiapine 25 MG Tablet 12.5 MG GT (08:26)
[2019-10-23] MEDS: cloNIDine HCl 0.2 MG Tablet GT ×2 (08:27→20:04)
[2019-10-23] MEDS: Aspirin 81 MG TAB.CHEW GT (08:27)
[2019-10-23] MEDS: Carvedilol 12.5 MG Tablet GT ×2 (08:27→20:04)
[2019-10-23] MEDS: NYSTATIN 500,000 UNIT/5 ML UDC 500000 UNIT PO ×4 (08:28→20:16)
--- NOTE | 2019-10-23 08:30 | NURSING ---
Attempting to climb out of bed with legs hanging over the side rail and reporting to staff that he needs to get up in wheelchair to leave. Patient reported he needed to get home. Staff provided reorientation and redirection with little effect. Given seroquel early at this time. Will monitor. Patient talked to on phone as well to help orient him.
[2019-10-23] MEDS: Haloperidol 1 MG Tablet SL (11:25)
--- NOTE | 2019-10-23 11:38 | NURSING ---
PRN haldol given for agitation. Currently up at desk in chair getting 1:1 supervision by staff. Confused and alert x1 to self. Max stand pivot x 2 to get from bed to chair due to difficulty following directions. Impulsive. Will continue to monitor. Denies pain, miranda to CD, denies needing to use the restroom.
--- NOTE | 2019-10-23 14:12 | PCM.PN.BLA ---
Progress Note Afebrile VSS - orthostatics are negative Maintaining appropriate oxygen saturation on RA tolerating TF with no significant residuals or diarrhea Discussed with nursing - Gus has been confused and restless. He is impulsive and is having trouble following directions. Her received a mg of Haldol today for repeated attempts to crawl out of bed. Per his he is a heavy drinker. He had to have a Butt inserted for urine retention. Reviewed the PT/OT/ST notes Medication list reviewed. he is lying flat in bed with no respiratory distress. He is oriented to person only and thinks he is in [place] He has called the nurses repeatedly to find his glasses which he has been lying on. He is having tremors of his hands He is not aggressive, just more confused. Lungs - clear anteriorly and lateral with good air exchange Heart - irreg with controlled VR abd - + BS's, flat, no guarding with palpation no edema The pressure ulcer at the PEG is dry with no erythema or DC Impressions 1. acute encephalopathy due to CVA and also likely to ETOH withdrawal. 2. ETOH use/abuse - heavy drinker 3. tobacco dependence 4. Intracerebral bleed after TPA 5. DVT prophylaxis with SCD's and ELOINA hose 6. mild prolongation of the QTc at admission - Seroquel has been increased since then due to behavioral issues 7. Urine retention-more likely than not secondary to prostatic hypertrophy Get an EKG now If there is no significant increase in the QTc over what it was at admission will increase the Seroquel BMP in the AM Maintain the Butt for 1 week and start the patient on Flomax 0.4 mg daily. Inpatient E&M: 66657 Subs Hosp L2
--- NOTE | 2019-10-23 14:19 | EKG12_ITS ---
Test Reason : CP Blood Pressure : / mmHG Vent. Rate : 079 BPM Atrial Rate : 170 BPM P-R Int : 000 ms QRS Dur : 092 ms QT Int : 416 ms P-R-T Axes : 000 -26 044 degrees QTc Int : 477 ms Atrial fibrillation Abnormal ECG Confirmed by STACY NELSON, LORNA ([id number]), editor newspaper ADRIEL BRADEN ([id number]) on 11/01/2019 11:20:14 AM Referred By: JAYNA Confirmed By:LORNA KUMAR MD
[2019-10-23 14:20] VITALS: BMI 27.1
[2019-10-23] MEDS: Thiamine Hydrochloride 100 MG Tablet PO (18:04)
[2019-10-23] MEDS: Tamsulosin HCl 0.4 MG Capsule PO (18:04)
[2019-10-23 20:00] VITALS: BP 125/85; PULSE 84; RESP 18; TEMP 36.8; O2SAT 96
[2019-10-23] MEDS: Atorvastatin Calcium 40 MG Tablet GT (20:04)
[2019-10-23] MEDS: QUEtiapine 25 MG Tablet 50 MG GT (20:05)
[2019-10-24] MEDS: Jevity 1.5. 1,000 ML Bottle 250 ML GT ×6 (05:10→20:42)
[2019-10-24 05:24] VITALS: BP 148/88; PULSE 94; RESP 18; TEMP 36.7; O2SAT 96
--- NOTE | 2019-10-24 05:44 | NURSING ---
pt has a firm area the size of a quarter on buttock.
[2019-10-24 06:52] LABS: Anion Gap 7 (5-15); BUN 20 mg/dL (7-18); BUN/Creat Ratio 30.8 RATIO (10-20); Calcium,Total 9.2 mg/dL (8.5-10.1); Chloride 103 mmol/L (98-107); Creatinine, Serum 0.65 mg/dL (0.70-1.30); EST Glomerular Filtration Rate 130 mL/min (>60); Est Glom Filt Rate - Afr Amer 157 mL/min (>60); Estimated Creatinine Clearance 76.52 ml/min; Glucose 140 mg/dL (74-106); Potassium 3.8 mmol/L (3.5-5.1); Sodium Level 137 mmol/L (136-145)
[2019-10-24 08:30] VITALS: BP 138/84; PULSE 88; RESP 18; TEMP 36.7; O2SAT 96
[2019-10-24] MEDS: cloNIDine HCl 0.2 MG Tablet GT ×2 (09:34→20:42)
[2019-10-24] MEDS: Carvedilol 12.5 MG Tablet GT ×2 (09:34→20:41)
[2019-10-24] MEDS: Aspirin 81 MG TAB.CHEW GT (09:34)
[2019-10-24] MEDS: Thiamine Hydrochloride 100 MG Tablet PO (09:34)
[2019-10-24] MEDS: Folic Acid 1 MG Tablet PO (09:34)
[2019-10-24] MEDS: QUEtiapine 25 MG Tablet GT (09:35)
--- NOTE | 2019-10-24 10:29 | CASEMGMT ---
Social Work IDT met with patient, and dtr via conference call for Team Meeting. Discussed patient's progress in therapy. Pt is mod-max assist for transfer, max for sit to stand using grab bars, walking on the wall rail 20 ft x2 at max assist. Pt trailed hemiwalker and aced wrap left ankle, pt could walk 12 ft x2 with max x1 and w/c follow. Pt has left neglect, some left shoulder/elbow return, but doesn't usually incorporate in personal care routine. Pt is max to total assist for ADLs. ST working on speech intelligibility with 60-75% accuracy, working on oral motor exercises, remains NPO, feeding tube, trailing ice chips an needing cues. Pt is not consistently alert and not safe to swallow. Pt requires max cues to attend to left side, and decreased attention. Pt is not consistent in using call-light. Pt has no pain and sleeping well. Physician increased Seroquel to assist with impulsivity and tremors. Physician stated pt is more confused due to encephalopathy and alcohol withdrawal. Pt had catheter placed for urinary retention. Explained Medicare benefit. Will ReTeam next week. Will continue to follow. MOHSEN GarciaW
--- NOTE | 2019-10-24 11:00 | PCM.PN.BLA ---
Progress Note Gus was seen on TEAM rounds today. Ángel and dtr Polly participated by phone. Afebrile VSS Maintaining appropriate oxygen saturation on RA He is still NPO except with PT. [] Discussed with nursing - no problems that need addressed Reviewed the PT/OT/ST notes Medication list reviewed. All lab was personally reviewed. BUN is down to 20 and the creatinine is stable at 0.65. The fasting blood sugar this morning is 140 and the patient has no history of diabetes mellitus. Potassium is within normal limits at 3.8. Sodium is 137. He is very sleepy today and every time I go to his room to see him he is in the bed sleeping. Lungs - CTA Heart-irregular irregular with controlled ventricular response, no gallop Abdomen-soft, nontender, nondistended, bowel sounds present, PEG site is without erythema, no purulent discharge. no peripheral edema no significant movement of the L side. No facial droop. The area at the PEG that has the pressure ulcer is no dry with no erythema or purulent DC Impressions 1. urine retention - Butt inserted and he is now on flomax. 2. severe dysphagia with PEG....tolerating the bolus feedings without residual 3. encephalopathy - due to CVA +/- long hx of ETOH abuse, acute ETOH withdrawal 4. dehydration - mentation improved a little today possibly due to hydration 5. pressure ulcer at the PEG site - no sign of infection 6. SAMMY 7. Low HDL 8. Recent history of hemorrhagic transformation of right ischemic MCA stroke following TPA administration HGBA1C Continue therapy STROKE Vital Signs/Narrative: Vital Signs Temp Pulse Resp BP Pulse Ox 10/24/19 08:30 98.1 F 88 18 138/84 H 96 Inpatient E&M: [id number] Subs Hosp L2
[2019-10-24 11:40] LABS: Hemoglobin A1c 5.5 % (3.8-5.6)
[2019-10-24 15:14] VITALS: BMI 27.1
[2019-10-24] MEDS: Tamsulosin HCl 0.4 MG Capsule PO (18:34)
[2019-10-24 19:30] VITALS: BP 122/74; PULSE 86; RESP 16; TEMP 36.8; O2SAT 96
[2019-10-24] MEDS: QUEtiapine 25 MG Tablet 50 MG GT (20:41)
[2019-10-24] MEDS: Atorvastatin Calcium 40 MG Tablet GT (20:41)
[2019-10-24 21:00] VITALS: BMI 27.1
[2019-10-25] MEDS: Haloperidol 1 MG Tablet SL ×2 (01:19→23:48)
--- NOTE | 2019-10-25 01:21 | NURSING ---
pt overheard at nursing station calling out. Pt had bedding undone, pillows thrown onto floor, legs tangled in SCDs. Pt c/o SCDs and insisted having them removed. SCDs removed by staff, bedding replaced, pt repositioned, and clothing replaced. Pt very chatty and restless. Pt very restless in bed while staff in room. Haldol PRN provided. Will continue to monitor.
--- NOTE | 2019-10-25 03:10 | NURSING ---
Pt has dozed off and on slightly since admin of Haldol. Pt awake at this time, 03:11, and still fidgeting with blankets and can be found up around neck.
[2019-10-25] MEDS: Jevity 1.5. 1,000 ML Bottle 250 ML GT ×6 (05:07→21:00)
[2019-10-25 07:25] VITALS: BP 130/68; PULSE 82; RESP 17; TEMP 36.7; O2SAT 97
[2019-10-25] MEDS: Aspirin 81 MG TAB.CHEW GT (08:51)
[2019-10-25] MEDS: Thiamine Hydrochloride 100 MG Tablet PO (08:52)
[2019-10-25] MEDS: Folic Acid 1 MG Tablet PO (08:52)
[2019-10-25] MEDS: QUEtiapine 25 MG Tablet GT (08:52)
[2019-10-25] MEDS: Carvedilol 12.5 MG Tablet GT ×2 (08:52→21:00)
[2019-10-25] MEDS: cloNIDine HCl 0.2 MG Tablet GT ×2 (08:52→21:00)
[2019-10-25 14:17] VITALS: BMI 27.1
[2019-10-25] MEDS: Acetaminophen 325 MG Tablet 650 MG PO (14:34)
[2019-10-25] MEDS: Tamsulosin HCl 0.4 MG Capsule PO (17:25)
[2019-10-25 19:40] VITALS: BP 134/98; PULSE 74; RESP 16; TEMP 36.6; O2SAT 98
[2019-10-25] MEDS: QUEtiapine 25 MG Tablet 50 MG GT (20:46)
[2019-10-25 20:57] VITALS: BMI 27.1
[2019-10-25] MEDS: Atorvastatin Calcium 40 MG Tablet GT (21:00)
[2019-10-25] MEDS: Acetaminophen 650 MG/20 ML UDC GT (21:02)
--- NOTE | 2019-10-25 23:50 | NURSING ---
Pt awakened after falling asleep for almost 1 hour. Pt fidgeting and expressed concern about the hospital bills adding up for pt. Pt states he has to get out of here. Pt has concerns about his as well. Pt restless and agitated. Haldol prn given. Pt c/o freezing, which, per spouse, is his norm. Thermometer is turned up and extra blankets provided. Staff assists with repositioning to enable as much comfort and sleep as possible. Will continue to monitor.
--- NOTE | 2019-10-26 02:56 | NURSING ---
Pt at Nursing Station 1:1 with staff. Pt using call light repeatedly, so pt is at nursing station since he is not feeling sleepy at all, per pt report.
[2019-10-26] MEDS: Jevity 1.5. 1,000 ML Bottle 250 ML GT ×5 (05:55→20:29)
[2019-10-26 08:41] VITALS: BP 139/71; PULSE 94; RESP 16; TEMP 37; O2SAT 97
[2019-10-26] MEDS: Aspirin 81 MG TAB.CHEW GT (09:27)
[2019-10-26] MEDS: Folic Acid 1 MG Tablet PO (09:27)
[2019-10-26] MEDS: Carvedilol 12.5 MG Tablet GT ×2 (09:27→20:26)
[2019-10-26] MEDS: QUEtiapine 25 MG Tablet 12.5 MG GT (09:27)
[2019-10-26] MEDS: cloNIDine HCl 0.2 MG Tablet GT ×2 (09:27→20:26)
[2019-10-26] MEDS: Thiamine Hydrochloride 100 MG Tablet PO (09:27)
--- NOTE | 2019-10-26 09:37 | NURSING ---
Pt refused 9a tube feed c/o indigestion from the previous given at 6a. Will continue to monitor.
[2019-10-26 10:45] VITALS: BMI 27.1
--- NOTE | 2019-10-26 11:50 | PN_ITS ---
Progress Note Gus refused the morning feeding today because of burning in the stomach and some reflux. He has had this in the past at home. Not currently on a PPI. He is afebrile Blood pressure is still not optimally controlled. Diastolic blood pressure is still occasionally greater than 80 and the systolic blood pressure is sometimes greater than 130. He denies any dizziness or lightheadedness. He is maintaining appropriate oxygen saturation on room air. I reviewed the PT/OT/ST notes. Medication list was reviewed. I talked with Gus and his Ángel at about 6:30 last night and Gus was very alert. He knew where he was and why he was here but kept telling me that he needed to drive Ángel to the bus station because he was worried about her driving home alone. I reinforced with him that he is not allowed to drive because of the stroke. Ángel was able to tell me that Gus worked nights prior to long term. Since long term it has been his routine to go to bed at 9 and then get up around MN and stay awake until 4-5 in the morning and then go back to sleep. He likes fishing and he would like to look at some fishing magazines. His is going to bring in his IPAD....this keeps him occupied. The night nurses say that he is restless at night and last night they had him sitting at the nurses station. NAD, sleepy when I examined him today Lungs - CTA H - irreg irreg with controlled ventricular rate Abdomen-soft, nontender, nondistended, no evidence of infection in the area around the PEG tube, bowel sounds present No peripheral edema Starting to be more aware of his left side Impressions 1. debility post embolic CVA with hemorrhagic conversion 2. suspected GERD 3. hx of ETOH dependence with acute alcohol withdrawal. 4. abnormal sleep wake cycle due to working nights for many years...this is impairing his ability to do therapy during the day. add Pepcid BID to his drug regimen. I think we are just going to have to deal with his sleep habits. I do not want to increase Seroquel at night just for him to sleep because I do not want to risk causing an increase in confusion or the QTC. Will try adding Melatonin 3 mg at HS. STROKE Vital Signs/Narrative: Vital Signs Temp Pulse Resp BP Pulse Ox 10/26/19 08:41 98.6 F 94 16 139/71 H 97 Inpatient E&M: [id number] Subs Hosp L2
[2019-10-26] MEDS: Tamsulosin HCl 0.4 MG Capsule PO (18:01)
[2019-10-26 19:53] VITALS: BP 120/75; PULSE 89; RESP 18; TEMP 36.5; O2SAT 96
[2019-10-26] MEDS: QUEtiapine 25 MG Tablet 50 MG GT (20:15)
[2019-10-26] MEDS: Atorvastatin Calcium 40 MG Tablet GT (20:27)
[2019-10-26] MEDS: MELATONIN 3 MG TABLET PO (20:27)
[2019-10-26] MEDS: Famotidine 20 MG Tablet PO (20:28)
[2019-10-26] MEDS: Acetaminophen 650 MG/20 ML UDC GT (20:32)
[2019-10-26 20:48] VITALS: BMI 27.1
[2019-10-26 22:00] VITALS: PULSE 85; RESP 17
[2019-10-27] MEDS: Jevity 1.5. 1,000 ML Bottle 250 ML GT ×6 (05:22→21:44)
[2019-10-27] MEDS: Acetaminophen 650 MG/20 ML UDC GT (05:40)
[2019-10-27 07:40] VITALS: BP 132/85; PULSE 86; RESP 18; TEMP 36.8; O2SAT 95
[2019-10-27] MEDS: Famotidine 20 MG Tablet PO ×2 (09:10→21:43)
[2019-10-27] MEDS: cloNIDine HCl 0.2 MG Tablet GT ×2 (09:10→21:43)
[2019-10-27] MEDS: Aspirin 81 MG TAB.CHEW GT (09:10)
[2019-10-27] MEDS: QUEtiapine 25 MG Tablet 12.5 MG GT (09:10)
[2019-10-27] MEDS: Thiamine Hydrochloride 100 MG Tablet PO (09:10)
[2019-10-27] MEDS: Folic Acid 1 MG Tablet PO (09:10)
[2019-10-27] MEDS: Carvedilol 12.5 MG Tablet GT ×2 (09:10→21:43)
[2019-10-27 11:15] VITALS: BMI 27.1
--- NOTE | 2019-10-27 15:40 | CHAPLAIN ---
Type of Pastoral Visit ___ Initial Visit _x__ Follow-up Visit ___ On-call Visit ___ General Patient Visit ___ Spiritual Assessment ___ Family Conference ___ Bereavement ___ Rapid Response ___ Code Blue ___ Other (describe below) Pastoral Care Referral From _x__ Patient ___ Family ___ Nurse ___ Physician ___ Industrial Boilermaker ___ Plastic Molder ___ Other (describe below) Sacrament/Intervention ___ Active listening ___ Anointing ___ Synagogue ___ Bereavement ___ Communion ___ Leesa exploration ___ ___ Life review _x__ Prayer ___ Reconciliation ___ Sacrament of Sick _x__ Supportive presence ___ Wedding ___ Other (describe below) Pastoral Comments entered into room after RN's left room; pt is awake and in bed; pt acknowledges this esol teacher assistant and says that he remembers previous visit; pt is welcoming but does not initiate conversation and attempts to get into sleeping position; pt states it is ok to visit but closes eyes and looks to fall asleep; offer of support given to patient and pt expresses thanks and says you can say a prayer; pt has much movement in bed and trying to find comfort spot it appears
[2019-10-27] MEDS: Tamsulosin HCl 0.4 MG Capsule PO (17:31)
[2019-10-27 19:23] VITALS: BP 134/80; PULSE 86; RESP 18; TEMP 36.6; O2SAT 96
[2019-10-27] MEDS: QUEtiapine 25 MG Tablet 50 MG GT (19:40)
[2019-10-27] MEDS: Atorvastatin Calcium 40 MG Tablet GT (21:43)
[2019-10-27] MEDS: MELATONIN 3 MG TABLET PO (21:43)
--- NOTE | 2019-10-27 23:30 | NURSING ---
PT FOUND IN SUPINE POSITION. C/O PAIN IN CHEST AND DIFFICULTY BREATHING. HOB ELEVATED WITH PT BEGINNING TO GET RELIEF OF CHEST PAIN. STATES BREATHING FEEL LABORED. COLOR IS PINK AND SKIN IS WARM AND DRY. PLACED ON 3LPM O2 PER N/C .
[2019-10-27 23:32] VITALS: BP 103/71; PULSE 82; RESP 12; O2SAT 98
--- NOTE | 2019-10-27 23:40 | NURSING ---
DR GAEL ALSTON NOTIFIED THAT PT IS C/O CHEST PAIN WHICH PARTIALLY IMPROVED UPON RAISING HOB. INFORMED OF CURRENT VITAL SIGNS. DR ALSTON WILL PUT IN ORDERS. RESP THERAPY NOTIFIED OF NEED FOR EKG ON PT.
--- NOTE | 2019-10-27 23:44 | EKG12_ITS ---
Test Reason : DYSRHYTHMIA Blood Pressure : / mmHG Vent. Rate : 080 BPM Atrial Rate : 088 BPM P-R Int : 000 ms QRS Dur : 092 ms QT Int : 414 ms P-R-T Axes : 000 -20 050 degrees QTc Int : 477 ms Atrial fibrillation Abnormal ECG Confirmed by STACY NELSON, LORNA ([id number]), editor newspaper MALCOLM HORVATH ([id number]) on 11/09/2019 10:22:46 AM Referred By: JAYNA Confirmed By:LORNA KUMAR MD
--- NOTE | 2019-10-27 23:45 | PCM.PN.BLA ---
Progress Note Nurse reported patient has chest pain 4 out of 10. Give aspirin 325 mg x 1. Obtain stat chest x-ray and stat EKG. Trend troponin. Of note patient is on daily baby aspirin and Lipitor 40 mg daily. STROKE Vital Signs/Narrative: Vital Signs Pulse Resp BP Pulse Ox 10/27/19 23:32 82 12 103/71 98
--- NOTE | 2019-10-27 23:48 | NURSING ---
PT RATES CHEST PAIN #5 AND BREATHING STILL FEELS LABORED. PT RESTLESS IN BED PER USUAL DURING THIS HOSPITAL STAY.
[2019-10-27] MEDS: Aspirin 325 MG Tablet PO (23:58)
--- NOTE | 2019-10-28 00:15 | NURSING ---
DR ALSTON UPDATED ON PT'S CURRENT PAIN LEVEL. ORDERS GIVEN TO GIVE PT NTG AND INITIATE SALINE LOCK.
[2019-10-28 00:30] VITALS: BP 106/72; PULSE 77; RESP 12; O2SAT 96
[2019-10-28 00:32] VITALS: BP 106/72; PULSE 77
[2019-10-28] MEDS: Nitroglycerin (INPATIENT USE) 0.4 MG TAB.SUBL SUBLINGUAL (00:32)
--- NOTE | 2019-10-28 00:35 | RAD_ITS ---
HISTORY: Not provided EXAMINATION/TECHNIQUE: XR Chest 1 View: Portable COMPARISON: None FINDINGS: Normal heart size. No focal infiltrate. No vascular congestion or pleural effusion. No pneumothorax. The bony thorax appears intact. RAD/Chest 1 View (Portable) IMPRESSION: No acute cardiopulmonary disease. at 0209 Reported and signed by: Christiano Jaffe MD Electronically Signed: Christiano Jaffe, at 2:08 EDT Tel , Service support ,
--- NOTE | 2019-10-28 00:44 | NURSING ---
RADIOLOGY AND LAB IN ROOM WITH PT.
--- NOTE | 2019-10-28 00:52 | NURSING ---
PT DENIES HAVING CHEST PAIN. LAB DRAWING BLOOD FROM PT. PT HAS BEEN C/O ITCHING TO BACK AND POSTERIOR SHOULDERS. PT STATES HIS BREATHING FEELS BACK TO NORMAL.
[2019-10-28 00:57] VITALS: BP 94/60; PULSE 81
--- NOTE | 2019-10-28 03:55 | NURSING ---
PT RESTLESS MOST OF THIS SHIFT. NOW GETTING BELLIGERENT WITH STAFF SAYING THAT HE WANTS TO GO HOME. MEDICATED WITH HALDOL.
[2019-10-28] MEDS: Haloperidol 1 MG Tablet SL ×2 (03:59→21:48)
[2019-10-28] MEDS: Jevity 1.5. 1,000 ML Bottle 250 ML GT ×6 (05:29→21:48)
[2019-10-28 07:58] VITALS: BP 117/79; PULSE 81; RESP 16; TEMP 36.5; O2SAT 94
[2019-10-28] MEDS: Folic Acid 1 MG Tablet PO (08:22)
[2019-10-28] MEDS: cloNIDine HCl 0.2 MG Tablet GT ×2 (08:22→21:49)
[2019-10-28] MEDS: Carvedilol 12.5 MG Tablet GT ×2 (08:22→21:49)
[2019-10-28] MEDS: Aspirin 81 MG TAB.CHEW GT (08:22)
[2019-10-28] MEDS: Thiamine Hydrochloride 100 MG Tablet PO (08:22)
[2019-10-28] MEDS: QUEtiapine 25 MG Tablet 12.5 MG GT (08:23)
[2019-10-28] MEDS: Famotidine 20 MG Tablet PO ×2 (08:23→21:49)
[2019-10-28 11:46] VITALS: BMI 27.1
[2019-10-28] MEDS: Acetaminophen 650 MG/20 ML UDC GT (14:39)
[2019-10-28] MEDS: Tamsulosin HCl 0.4 MG Capsule PO (16:47)
[2019-10-28 19:23] VITALS: BP 123/66; PULSE 81; RESP 16; TEMP 36.7; O2SAT 96
[2019-10-28] MEDS: QUEtiapine 25 MG Tablet 50 MG GT (20:11)
[2019-10-28] MEDS: Atorvastatin Calcium 40 MG Tablet GT (21:49)
[2019-10-28] MEDS: MELATONIN 3 MG TABLET PO (21:49)
--- NOTE | 2019-10-29 01:13 | NURSING ---
pt restless not sleeping, tv turned on for him.
[2019-10-29 05:00] VITALS: BMI 27.1
[2019-10-29] MEDS: Jevity 1.5. 1,000 ML Bottle 250 ML GT ×6 (05:34→20:56)
[2019-10-29] MEDS: QUEtiapine 25 MG Tablet 12.5 MG GT (07:55)
[2019-10-29] MEDS: Acetaminophen 650 MG/20 ML UDC GT ×2 (07:55→16:58)
--- NOTE | 2019-10-29 07:55 | NURSING ---
Routine seroquel given at this time. Patient impulsive, kicking at nurse, agitated. Very confused and difficult to reorient. Reports that he does not want to get out of bed at this time. Prior shift reported he slept very poor last night.
[2019-10-29] MEDS: Thiamine Hydrochloride 100 MG Tablet PO (07:56)
[2019-10-29] MEDS: Aspirin 81 MG TAB.CHEW GT (07:56)
[2019-10-29] MEDS: Carvedilol 12.5 MG Tablet GT ×2 (07:56→20:56)
[2019-10-29] MEDS: Folic Acid 1 MG Tablet PO (07:56)
[2019-10-29] MEDS: cloNIDine HCl 0.2 MG Tablet GT ×2 (07:57→20:56)
[2019-10-29] MEDS: Famotidine 20 MG Tablet PO ×2 (07:57→20:56)
--- NOTE | 2019-10-29 09:30 | NURSING ---
Patient remains impulsive, restless, and fidgety but is cooperative with 1:1 at times. Confused, alert x 1. Will monitor.
[2019-10-29 09:51] VITALS: BP 122/73; PULSE 88; RESP 16; TEMP 36.7; O2SAT 99
[2019-10-29 15:11] VITALS: BMI 27.1
[2019-10-29] MEDS: Tamsulosin HCl 0.4 MG Capsule PO (16:58)
--- NOTE | 2019-10-29 18:00 | NURSING ---
Agitated with staff. Reported that he sees his in the corner of the room and she will not come near him. This nurse redirected and reoriented and showed him around his room and he started to curse at this nurse and say, you don't know what the hell you are talking about.
[2019-10-29 19:43] VITALS: BP 154/94; PULSE 87; RESP 16; TEMP 36.6; O2SAT 95
[2019-10-29] MEDS: QUEtiapine 25 MG Tablet 50 MG GT (20:55)
[2019-10-29] MEDS: MELATONIN 3 MG TABLET PO (20:56)
[2019-10-29] MEDS: Atorvastatin Calcium 40 MG Tablet GT (20:56)
[2019-10-30 05:00] VITALS: BMI 27.1
[2019-10-30] MEDS: Jevity 1.5. 1,000 ML Bottle 250 ML GT ×6 (06:06→21:04)
[2019-10-30 07:00] VITALS: BP 130/82; PULSE 84; RESP 12; TEMP 36.5; O2SAT 98
[2019-10-30] MEDS: Folic Acid 1 MG Tablet PO (08:03)
[2019-10-30] MEDS: Acetaminophen 650 MG/20 ML UDC GT ×2 (08:03→21:05)
[2019-10-30] MEDS: Carvedilol 12.5 MG Tablet GT ×2 (08:03→21:04)
[2019-10-30] MEDS: QUEtiapine 25 MG Tablet 12.5 MG GT (08:04)
[2019-10-30] MEDS: Famotidine 20 MG Tablet PO ×2 (08:04→21:04)
[2019-10-30] MEDS: Aspirin 81 MG TAB.CHEW GT (08:04)
[2019-10-30] MEDS: Thiamine Hydrochloride 100 MG Tablet PO (08:05)
[2019-10-30] MEDS: cloNIDine HCl 0.2 MG Tablet GT ×2 (09:35→21:04)
[2019-10-30 13:28] VITALS: BMI 27.1
[2019-10-30] MEDS: Tamsulosin HCl 0.4 MG Capsule PO (18:28)
[2019-10-30 19:47] VITALS: BP 132/72; PULSE 81; RESP 16; TEMP 36.6; O2SAT 99
[2019-10-30] MEDS: QUEtiapine 25 MG Tablet 50 MG GT (21:03)
[2019-10-30] MEDS: Atorvastatin Calcium 40 MG Tablet GT (21:04)
[2019-10-30] MEDS: MELATONIN 3 MG TABLET PO (21:54)
[2019-10-31] MEDS: Jevity 1.5. 1,000 ML Bottle 250 ML GT ×5 (06:00→18:27)
[2019-10-31 07:45] VITALS: PULSE 76; RESP 16; TEMP 36.6; O2SAT 98
[2019-10-31] MEDS: QUEtiapine 25 MG Tablet 12.5 MG GT (08:45)
[2019-10-31] MEDS: Folic Acid 1 MG Tablet PO (08:46)
[2019-10-31] MEDS: Thiamine Hydrochloride 100 MG Tablet PO (08:46)
[2019-10-31] MEDS: Famotidine 20 MG Tablet PO ×2 (08:46→20:23)
[2019-10-31] MEDS: Carvedilol 12.5 MG Tablet GT ×2 (08:46→20:24)
[2019-10-31] MEDS: cloNIDine HCl 0.2 MG Tablet GT ×2 (08:46→20:24)
[2019-10-31] MEDS: Aspirin 81 MG TAB.CHEW GT (08:46)
[2019-10-31] MEDS: Magnesium Hydroxide 30 ML UDC GT (08:46)
[2019-10-31 11:21] VITALS: BMI 27.1
--- NOTE | 2019-10-31 12:27 | PN_ITS ---
Progress Note Gus was seen on TEAM rounds today. His Ángel participated by phone. Afebrile VSS Maintaining appropriate oxygen saturation on RA He is still NPO. He only takes sips and chips with the ST. He has been doing his swallowing exercises. Discussed with nursing - no problems that need addressed....he has slept better the past 2 nights. He is still confused at times and wanting to drive home. Reviewed the PT/OT/ST notes Medication list reviewed. Gus is much more alert today. He is sitting in the WC and is participating in the discussion and asking questions.......mostly about swallowing and is it going to get better.......he is afraid he is going to choke to if he tries to eat. He waved to me as he went by in the alvarez today He tells me that the reflux/chest pain is better since the Pepcid was added to the drug regimen. No SOB. No N/V/abd pain. Alert, appropriate, NAD Using the left hand more and is aware of the left side now. Lungs-clear but diminished Heart-irregular regular rhythm with controlled ventricular response, no gallop Abdomen-soft, nontender, nondistended, tolerating his PEG tubes, no tamara-PEG e rythema or purulent DC no edema no facial droop More aware of the left side now and he is starting to move the L arm more now. He is less impulsive and is better able to attend without so much distraction. He is ambulating with the leydi-walker. Needs assist to kick the left foot forward at times. Impressions 1. acute encephalopathy due to R MCA CVA and to acute ETOH withdrawal - improving 2. 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 BPH with urine retention 4. disturbed sleep wake cycle - doing better with the addition of the Melatonin AND also to the fact that he is now familiar with the routine in rehab unit. doing much better with participation in therapy today. 5. Chest pain due to GERD - doing better since Pepcid was added to the drug regimen DC the miranda and check post void residuals X 3 continue therapy. no change necessary in medication Inpatient E&M: 50433 Subs Hosp L2
--- NOTE | 2019-10-31 13:01 | CASEMGMT ---
Team meeting held today with pt present and pt Ángel on conference call. Pt is currently participating in PT/OT/ST. Pt requiring mod-max assist for transfers and able to ambulate with a hemiwalker 10-20 ft at max A. Max to Total assist for ADLs at this time. Speech therapy working with pt for speech intelligibility, visual inattention and swallowing. Pt currently NPO but working with speech to progress swallowing ability and pt hopeful to start diet soon. Pt and made aware that last covered day on RU is 11/12/19 and pt may need continued therapy at SNF at that time. Will continue with treatment plan and reteam next week. SW to continue to follow for d/c planning and emotional support. SOPHIE Stone
[2019-10-31] MEDS: Tamsulosin HCl 0.4 MG Capsule PO (18:26)
[2019-10-31 19:21] VITALS: BP 114/70; PULSE 89; RESP 16; TEMP 36.8; O2SAT 97
[2019-10-31 20:21] VITALS: BMI 27.1
[2019-10-31] MEDS: Acetaminophen 650 MG/20 ML UDC GT (20:22)
[2019-10-31] MEDS: MELATONIN 3 MG TABLET PO (20:23)
[2019-10-31] MEDS: Atorvastatin Calcium 40 MG Tablet GT (20:23)
[2019-10-31] MEDS: QUEtiapine 25 MG Tablet 50 MG GT (20:24)
[2019-10-31 21:53] VITALS: RESP 16; O2SAT 97
--- NOTE | 2019-11-01 03:59 | NURSING ---
Pt restless and obsessed with need to urinate. Pt using call light continuously for urinal use and has been encouraged to participate in bladder training. Pt expresses frustration with feeling like he cannot wait. bladder scanned and pt had 51 mL urine in bladder. Pt has not slept this hs. Very Restless and setting off call light even when adjusting TV channels and volume. Bed alarm pad changed to large pad and pt then lifted seat off alarm frequently which set off alarm.
[2019-11-01] MEDS: Jevity 1.5. 1,000 ML Bottle 250 ML GT ×6 (05:10→22:23)
[2019-11-01 05:43] LABS: Absolute Lymphocyte Count 2.24 X10^3/uL (0.83-4.51); Basophil# 0.03 X10^3/uL; Basophil% 0.3 % (0-1); Eosinophil# 0.18 X10^3/uL; Eosinophils% 1.6 % (0-5); Lymphocyte # 2.24 X10^3/ul (4.0); Lymphocyte % 19.6 % (19-41); Mean Corp Hgb Conc 32.5 g/dL (32-36); Mean Corpuscular Hgb 29.7 pg (27.0-32.0); Mean Corpuscular Volume 91.5 fL (80-94); Mean Platelet Vol. 10.9 fl (6.2-12.0); Monocyte% 7.9 % (0-10); NRBC Flagged by Analyzer 0 % (0-5); Neutrophil # 7.98 X10^3/uL (2.7-7.7); Neutrophil % 69.9 % (47-70); Platelet Count 258 K/mm3 (150-450); RBC Distribution Width CV 13.4 % (11.6-14.6); RBC Distribution Width SD 44.7 fl (35.1-43.9); Red Blood Count 4.37 M/mm3 (4.6-6.2); White Blood Count 11.4 K/mm3 (4.4-11.0)
[2019-11-01 06:01] LABS: Anion Gap 7 (5-15); BUN 15 mg/dL (7-18); BUN/Creat Ratio 24.3 RATIO (10-20); Calcium,Total 8.8 mg/dL (8.5-10.1); Chloride 102 mmol/L (98-107); Creatinine, Serum 0.62 mg/dL (0.70-1.30); EST Glomerular Filtration Rate 137 mL/min (>60); Est Glom Filt Rate - Afr Amer 166 mL/min (>60); Estimated Creatinine Clearance 76.52 ml/min; Glucose 100 mg/dL (74-106); Potassium 3.9 mmol/L (3.5-5.1); Sodium Level 135 mmol/L (136-145)
--- NOTE | 2019-11-01 06:18 | NURSING ---
Pt has been awake all night. Still putting on the call light constantly for urinal use. Pt advised that staff is assisting with bladder training but pt replies that he has to pee like a race horse but beg like a dog.
[2019-11-01] MEDS: Acetaminophen 650 MG/20 ML UDC GT ×2 (07:01→16:54)
[2019-11-01] MEDS: Carvedilol 12.5 MG Tablet GT ×2 (08:48→20:28)
[2019-11-01] MEDS: QUEtiapine 25 MG Tablet 12.5 MG GT (08:48)
[2019-11-01] MEDS: Thiamine Hydrochloride 100 MG Tablet PO (08:48)
[2019-11-01] MEDS: cloNIDine HCl 0.2 MG Tablet GT ×2 (08:48→20:28)
[2019-11-01] MEDS: Folic Acid 1 MG Tablet PO (08:49)
[2019-11-01] MEDS: Aspirin 81 MG TAB.CHEW GT (08:49)
[2019-11-01] MEDS: Famotidine 20 MG Tablet PO ×2 (08:49→20:28)
[2019-11-01 09:23] VITALS: BP 121/89; PULSE 87; RESP 16; TEMP 36.6; O2SAT 97
[2019-11-01 10:42] VITALS: BMI 27.1
[2019-11-01] MEDS: Phenazopyridine 95 MG Tablet PO ×2 (14:42→20:28)
[2019-11-01] MEDS: Tamsulosin HCl 0.4 MG Capsule PO (16:54)
[2019-11-01 20:20] VITALS: BP 118/84; PULSE 63; PULSE 94; RESP 16; RESP 18; TEMP 36.8; O2SAT 98; BMI 27.1
[2019-11-01] MEDS: QUEtiapine 25 MG Tablet 50 MG GT (20:28)
[2019-11-01] MEDS: MELATONIN 3 MG TABLET PO (20:28)
[2019-11-01] MEDS: Atorvastatin Calcium 40 MG Tablet GT (20:29)
--- NOTE | 2019-11-02 04:16 | NURSING ---
Reviewed and agree with TUBE INSPECTOR documentation and charting.
[2019-11-02] MEDS: Acetaminophen 650 MG/20 ML UDC GT ×2 (04:26→21:05)
[2019-11-02] MEDS: Jevity 1.5. 1,000 ML Bottle 250 ML GT ×6 (04:27→21:04)
[2019-11-02] MEDS: Phenazopyridine 95 MG Tablet PO ×2 (04:27→14:37)
[2019-11-02 07:26] VITALS: BP 122/80; PULSE 68; RESP 16; TEMP 36.6; O2SAT 96
--- NOTE | 2019-11-02 08:14 | PN_ITS ---
Progress Note Afebrile VSS-blood pressure is well controlled and so is the ventricular response in atrial fibrillation Maintaining appropriate oxygen saturation on RA He currently receives all his feedings via the PEG tube. He has been advanced to a Hartman water protocol with staff only. Discussed with nursing - no problems that need addressed. He was started on Pyridium yesterday for bladder irritability and this seems to have helped since he slept better last night and was not perseverating on having to urinate. PV residuals have been all under 120 since Flomax. Butt was removed on Thursday Reviewed the PT/OT/ST notes - his came in and worked with OT yesterday for showering and dressing. PT notes that he is less impulsive and more controlled at this time but, everyone mentions he continues to have decreased safety awareness. Medication list reviewed. All lab was personally reviewed. CBC showed an elevated white blood cell count at 11.4 but with a unremarkable differential. Hemoglobin and platelets are within normal limits and the MCV and MCH are also normal. Sodium was 135 and potassium was 3.9. The BUN is 15 with a creatinine of 0.62 which is stable. He is still confused and impulsive. He thinks he is going to go home every time his visits. Lungs - diminished but no rales or wheezes H- irreg irreg with controlled VR, no gallop Abdomen-soft, nondistended , nontender, bowel sounds present, bladder is not distended no ankle edema he is starting to use the L arm and the L leg more and he has been ambulating with the [facility] Impressions 1. acute encephalopathy due to R MCA CVA and to acute ETOH withdrawal - improving 2. 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 BPH with urine retention - resolved with addition of Flomax to the drug regimen 4. disturbed sleep wake cycle - 5. Chest pain due to GERD - doing better since Pepcid was added to the drug regimen. EKG's and troponins have been negative Wondering if he does nothave some chronic encephalopathy due to LT ETOH use/abuse? STROKE Vital Signs/Narrative: Vital Signs Temp Pulse Resp BP Pulse Ox 11/02/19 07:26 98 F 68 16 122/80 H 96 Inpatient E&M: 40010 Subs Hosp L2
[2019-11-02] MEDS: Carvedilol 12.5 MG Tablet GT ×2 (08:58→21:04)
[2019-11-02] MEDS: QUEtiapine 25 MG Tablet 12.5 MG GT (08:58)
[2019-11-02] MEDS: Aspirin 81 MG TAB.CHEW GT (08:58)
[2019-11-02] MEDS: Thiamine Hydrochloride 100 MG Tablet PO (08:58)
[2019-11-02] MEDS: Famotidine 20 MG Tablet PO ×2 (08:58→21:04)
[2019-11-02] MEDS: cloNIDine HCl 0.2 MG Tablet GT ×2 (08:58→21:04)
[2019-11-02] MEDS: Folic Acid 1 MG Tablet PO (08:58)
[2019-11-02 09:54] VITALS: BMI 27.1
[2019-11-02] MEDS: Tamsulosin HCl 0.4 MG Capsule PO (18:33)
[2019-11-02 18:54] VITALS: BP 142/85; PULSE 85; RESP 16; TEMP 36.9; O2SAT 96
[2019-11-02] MEDS: QUEtiapine 25 MG Tablet 50 MG GT (20:59)
[2019-11-02] MEDS: Menthol/Lanolin/Calamine/Znox 113 GM Tube 1 APPLIC TOPICAL (21:00)
[2019-11-02] MEDS: Atorvastatin Calcium 40 MG Tablet GT (21:04)
[2019-11-02] MEDS: MELATONIN 3 MG TABLET PO (21:04)
[2019-11-03 03:07] VITALS: BMI 27.1
[2019-11-03] MEDS: Jevity 1.5. 1,000 ML Bottle 250 ML GT ×6 (05:59→21:02)
[2019-11-03 07:49] VITALS: BP 143/71; PULSE 85; RESP 18; TEMP 36.7; O2SAT 95
[2019-11-03] MEDS: Thiamine Hydrochloride 100 MG Tablet PO (08:20)
[2019-11-03] MEDS: Aspirin 81 MG TAB.CHEW GT (08:20)
[2019-11-03] MEDS: Famotidine 20 MG Tablet PO ×2 (08:20→21:03)
[2019-11-03] MEDS: Acetaminophen 650 MG/20 ML UDC GT ×2 (08:20→21:03)
[2019-11-03] MEDS: Folic Acid 1 MG Tablet PO (08:20)
[2019-11-03] MEDS: QUEtiapine 25 MG Tablet 12.5 MG GT (08:25)
[2019-11-03] MEDS: Menthol/Lanolin/Calamine/Znox 113 GM Tube 1 APPLIC TOPICAL ×2 (08:26→21:02)
[2019-11-03] MEDS: Carvedilol 12.5 MG Tablet GT ×2 (08:26→21:02)
[2019-11-03] MEDS: cloNIDine HCl 0.2 MG Tablet GT ×2 (08:26→21:02)
--- NOTE | 2019-11-03 08:52 | PN_ITS ---
Progress Note Pt was seen on TEAM rounds today. Hhis Ángel participated by phone Afebrile VSS Maintaining appropriate oxygen saturation on RA Still NPO except for Rhodes water and only with ST. Discussed with nursing - He is c/o burning with urination today. Daquan was DC'd on 10/31. He is more sleepy today and is not wanting to participate with t herapy. Reviewed the PT/OT/ST notes Medication list reviewed. arousable, NAD Lungs - CTA but diminished H- AF with controlled VR, no gallop, lying flat in bed with no respiratory distress abd - soft, PEG site is without erythema or DC no edema seems not as sharp today and is requiring more assist with activity Impressions 1. Post stroke debility 2. Atrial fibrillation with controlled ventricular response - not on an anticoagulant at this time due to hemorrhagic conversion 3. AMS more than usual today - etiology 4. BPH with urine retention - resolved with Flomax. Daquan was DC'd on 10/31 Check a UA today If the daytime somnolence continues consider Modafinil to keep him awake during the day so that he can do therapy more effectively STROKE Vital Signs/Narrative: Vital Signs Temp Pulse Resp BP Pulse Ox 11/03/19 07:49 98.1 F 85 18 143/71 H 95 Inpatient E&M: 17803 Subs Hosp L2
[2019-11-03 10:21] LABS: Bedside Glucose 177 mg/dL (70-110)
[2019-11-03 16:32] VITALS: BMI 27.1
--- NOTE | 2019-11-03 17:02 | CASEMGMT ---
Social Work SW met with pt and and discussed discharge plan. Pt and are aware that d/c date has been set for 11/12/19 and are in agreement that pt needs continued therapy at time of discharge. List of SNF's near pt home provided. Pt and will review the list and will have a decision by Thursday. SW to follow for SNF placement. SOPHIE Stone
[2019-11-03] MEDS: Tamsulosin HCl 0.4 MG Capsule PO (18:17)
--- NOTE | 2019-11-03 18:38 | NURSING ---
Patient c/o burning with urination. Urine was foul smelling and dark noble in color. Incontinence noted as well. New order per Dr. Culver for UA C&S.
[2019-11-03 19:56] VITALS: BP 144/74; PULSE 89; RESP 16; TEMP 37; O2SAT 97
[2019-11-03 20:53] LABS: Mucous, Urine 0 SEEN /hpf (<or=2+)
[2019-11-03 20:54] LABS: Color, Urine Yellow (Yellow); Glucose, Dipstick Normal (Normal); Ketone-Dipstick Negative (Negative); Leukocyte Esterase-Dipstick 500 /ul (Negative); Nitrite-Dipstick Positive (Negative); Occult Blood-Urine 50 /ul (Negative); Protein-Dipstick 30 mg/dl (Negative); Urine Bilirubin Dipstick Negative (Negative); Urine Clarity Turbid (Clear); Urine Urobilinogen 8 mg/dl (Normal)
[2019-11-03] MEDS: QUEtiapine 25 MG Tablet 50 MG GT (20:57)
[2019-11-03 21:01] LABS: Bacteria 2+ /hpf (None Seen); Red Blood Cells-Urine 5-10 SEEN /hpf (0-5); Squamous Epithelial Cells - UA 0-5 SEEN /hpf (0-5); White Blood Cells 50-100 SEEN /hpf (0-5)
[2019-11-03] MEDS: MELATONIN 3 MG TABLET PO (21:03)
[2019-11-03] MEDS: Atorvastatin Calcium 40 MG Tablet GT (21:03)
[2019-11-04 01:01] VITALS: BMI 27.1
[2019-11-04] MEDS: Jevity 1.5. 1,000 ML Bottle 250 ML GT ×6 (06:39→20:14)
[2019-11-04] MEDS: Acetaminophen 650 MG/20 ML UDC GT ×2 (07:50→15:39)
[2019-11-04] MEDS: Thiamine Hydrochloride 100 MG Tablet PO (07:51)
[2019-11-04] MEDS: Carvedilol 12.5 MG Tablet GT ×2 (07:51→22:27)
[2019-11-04] MEDS: cloNIDine HCl 0.2 MG Tablet GT ×2 (07:51→22:27)
[2019-11-04] MEDS: Aspirin 81 MG TAB.CHEW GT (07:51)
[2019-11-04] MEDS: Folic Acid 1 MG Tablet PO (07:51)
[2019-11-04] MEDS: QUEtiapine 25 MG Tablet 12.5 MG GT (07:52)
[2019-11-04] MEDS: Famotidine 20 MG Tablet PO ×2 (07:52→22:27)
[2019-11-04] MEDS: Menthol/Lanolin/Calamine/Znox 113 GM Tube 1 APPLIC TOPICAL ×2 (08:40→22:28)
[2019-11-04 08:50] VITALS: BP 119/71; PULSE 91; RESP 18; TEMP 36.7; O2SAT 95
[2019-11-04 10:06] VITALS: BMI 27.1
[2019-11-04 12:00] LABS: Bedside Glucose 93 mg/dL (70-110)
[2019-11-04] MEDS: Tamsulosin HCl 0.4 MG Capsule PO (17:08)
[2019-11-04 19:32] VITALS: BP 127/73; PULSE 86; RESP 18; TEMP 36.6; O2SAT 97
[2019-11-04] MEDS: QUEtiapine 25 MG Tablet 50 MG GT (20:02)
[2019-11-04] MEDS: MELATONIN 3 MG TABLET PO (22:27)
[2019-11-04] MEDS: Cefadroxil 500 MG CAPSULE 1000 MG PO (22:27)
[2019-11-04] MEDS: Atorvastatin Calcium 40 MG Tablet GT (22:27)
[2019-11-05 05:00] VITALS: BMI 27.1
[2019-11-05] MEDS: Modafinil 200 MG Tablet GT (05:57)
[2019-11-05] MEDS: Jevity 1.5. 1,000 ML Bottle 250 ML GT ×6 (05:58→20:22)
[2019-11-05 07:42] VITALS: BP 146/82; PULSE 88; RESP 16; TEMP 36.8; O2SAT 98
[2019-11-05] MEDS: Folic Acid 1 MG Tablet GT (09:16)
[2019-11-05] MEDS: cloNIDine HCl 0.2 MG Tablet GT ×2 (09:16→20:23)
[2019-11-05] MEDS: Cefadroxil 500 MG CAPSULE 1000 MG GT ×2 (09:16→20:24)
[2019-11-05] MEDS: Thiamine Hydrochloride 100 MG Tablet GT (09:16)
[2019-11-05] MEDS: Aspirin 81 MG TAB.CHEW GT (09:16)
[2019-11-05] MEDS: Famotidine 20 MG Tablet GT ×2 (09:17→20:25)
[2019-11-05] MEDS: Carvedilol 12.5 MG Tablet GT ×2 (09:17→20:23)
[2019-11-05] MEDS: QUEtiapine 25 MG Tablet 12.5 MG GT (09:17)
[2019-11-05] MEDS: Menthol/Lanolin/Calamine/Znox 113 GM Tube 1 APPLIC TOPICAL ×2 (09:18→20:22)
[2019-11-05 12:03] VITALS: BMI 27.1
[2019-11-05] MEDS: Tamsulosin HCl 0.4 MG Capsule PO (18:07)
[2019-11-05 19:02] VITALS: BP 129/82; PULSE 83; RESP 18; TEMP 36.4; O2SAT 97
[2019-11-05] MEDS: QUEtiapine 25 MG Tablet 50 MG GT (20:21)
[2019-11-05] MEDS: Acetaminophen 650 MG/20 ML UDC GT (20:24)
[2019-11-05] MEDS: Atorvastatin Calcium 40 MG Tablet GT ×2 (20:24→20:25)
[2019-11-05] MEDS: MELATONIN 3 MG TABLET GT (20:25)
[2019-11-05 20:55] VITALS: BMI 27.1
[2019-11-06] MEDS: Jevity 1.5. 1,000 ML Bottle 250 ML GT ×6 (05:20→20:51)
[2019-11-06] MEDS: Acetaminophen 650 MG/20 ML UDC GT ×3 (05:20→20:28)
--- NOTE | 2019-11-06 05:57 | NURSING ---
Pt found inverted in bed without setting off bed pad alarm. Pt very restless. Toileting and pain needs met. COASTAL/HARBOR DEFENSE OFFICER to sit with pt 1:1 to ensure safety as pt states he wants to get up and get going out of here.
[2019-11-06] MEDS: Modafinil 200 MG Tablet GT (06:17)
[2019-11-06] MEDS: Famotidine 20 MG Tablet GT ×2 (07:22→20:23)
[2019-11-06] MEDS: Thiamine Hydrochloride 100 MG Tablet GT (07:23)
[2019-11-06] MEDS: Folic Acid 1 MG Tablet GT (07:23)
[2019-11-06] MEDS: QUEtiapine 25 MG Tablet 12.5 MG GT (07:23)
[2019-11-06] MEDS: Cefadroxil 500 MG CAPSULE 1000 MG GT ×2 (07:23→20:23)
[2019-11-06] MEDS: Carvedilol 12.5 MG Tablet GT ×2 (07:23→20:23)
[2019-11-06] MEDS: cloNIDine HCl 0.2 MG Tablet GT ×2 (07:23→20:23)
[2019-11-06] MEDS: Aspirin 81 MG TAB.CHEW GT (07:23)
[2019-11-06 07:42] VITALS: BP 110/73; PULSE 78; RESP 16; TEMP 36.6; O2SAT 97
[2019-11-06] MEDS: Menthol/Lanolin/Calamine/Znox 113 GM Tube 1 APPLIC TOPICAL ×2 (08:26→20:21)
[2019-11-06 14:31] VITALS: BMI 27.1
[2019-11-06] MEDS: Tamsulosin HCl 0.4 MG Capsule PO (17:00)
[2019-11-06 18:50] VITALS: BP 114/82; PULSE 91; RESP 18; TEMP 36.6; O2SAT 99
--- NOTE | 2019-11-06 19:09 | PN_ITS ---
Progress Note Day #3 Duricef Afebrile VSS-blood pressure is well controlled and so is the heart rate. Maintaining appropriate oxygen saturation on RA Oral intake is 470 today.....he is now on the Eduardo free water protocol....staff only Discussed with nursing - Still not sleeping well at night however since the Modafinil was started he is much more alert during the day time. Reviewed the PT/OT/ST notes - still with poor safety awareness and impulsivity. Medication list reviewed. Urine culture grew a pansensitive E. coli. Gus denies dysuria today. He has no CP and he is not SOB. Denies nausea alert, impulsive, talkative Lungs-clear to auscultation Heart-irregular with controlled ventricular response Abdomen-the PEG site is without erythema, odor or discharge. Bowel sounds are present and he is no guarding with palpation No peripheral edema using the left hand more and seems to have less neglect Impressions 1. complicated UTI due to urine retention necessitating a Butt cath which was discontinued on 10/31 after urine retention resolved with the addition of Flomax to his drug regimen 2. encephalopathy due to CVA but, also suspect an element of chronic encephalopathy, possibly due to lobsterman ETOH use/abuse 3. BPH with urine retention 4. AF - rate controlled recheck the lab in the AM continue the Modafinil because it has been helping him to stay awake during the day Increase the Seroquel at HS to 75 mg and recheck an EKG in 24-48 hours Repeat MRI of the brain at [facility] in 1 week and if no new bleeding start anticoagulant for AF STROKE Vital Signs/Narrative: Vital Signs Temp Pulse Resp BP Pulse Ox 11/06/19 18:50 97.9 F 91 18 114/82 H 99 Inpatient E&M: 33681 Subs Hosp L2
[2019-11-06] MEDS: QUEtiapine 25 MG Tablet 75 MG GT (20:20)
[2019-11-06] MEDS: MELATONIN 3 MG TABLET GT (20:23)
[2019-11-06 20:26] VITALS: BMI 27.1
[2019-11-07 05:41] LABS: Absolute Lymphocyte Count 2.06 X10^3/uL (0.83-4.51); Absolute Neutrophil Count 2.7 X10^3/uL (2.0-7.7); Basophil# 0.01 X10^3/uL; Basophil% 0.2 % (0-1); Eosinophils% 3.6 % (0-5); Hematocrit 35.7 % (40-54); Hemoglobin 11.6 g/dL (13.0-16.5); Lymphocyte # 2.06 X10^3/ul (4.0); Lymphocyte % 37.4 % (19-41); Mean Corp Hgb Conc 32.5 g/dL (32-36); Mean Corpuscular Hgb 29.7 pg (27.0-32.0); Mean Corpuscular Volume 91.5 fL (80-94); Mean Platelet Vol. 10.9 fl (6.2-12.0); Monocyte# 0.52 X10^3/uL; Monocyte% 9.4 % (0-10); NRBC Flagged by Analyzer 0 % (0-5); Neutrophil # 2.66 X10^3/uL (2.7-7.7); Neutrophil % 48.3 % (47-70); Platelet Count 170 K/mm3 (150-450); RBC Distribution Width CV 13.3 % (11.6-14.6); RBC Distribution Width SD 44.2 fl (35.1-43.9); White Blood Count 5.5 K/mm3 (4.4-11.0)
[2019-11-07 06:08] LABS: ALB/GLOB Ratio 0.7 RATIO (0.9-2.4); AST(SGOT) 49 U/L (15-37); Alanine Aminotransfer ALT/SGPT 94 U/L (16-61); Albumin, Serum 2.9 g/dL (3.2-5.0); Alkaline Phosphatase 111 U/L (45-117); Anion Gap 8 (5-15); BUN 16 mg/dL (7-18); BUN/Creat Ratio 30.9 RATIO (10-20); Chloride 100 mmol/L (98-107); Creatinine, Serum 0.52 mg/dL (0.70-1.30); EST Glomerular Filtration Rate 168 mL/min (>60); Est Glom Filt Rate - Afr Amer 203 mL/min (>60); Estimated Creatinine Clearance 76.52 ml/min; Globulin 4.2 g/dL (2.2-4.2); Glucose 97 mg/dL (74-106); Magnesium 2.1 mg/dL (1.6-2.6); Phosphorus 4.4 mg/dL (2.5-4.9); Potassium 3.9 mmol/L (3.5-5.1); Protein, Total 7.1 g/dL (6.4-8.2); Sodium Level 136 mmol/L (136-145)
[2019-11-07] MEDS: Jevity 1.5. 1,000 ML Bottle 250 ML GT ×4 (06:13→20:34)
[2019-11-07] MEDS: Modafinil 200 MG Tablet GT (06:31)
[2019-11-07 07:27] VITALS: BP 136/81; PULSE 90; RESP 18; TEMP 36.3; O2SAT 97
[2019-11-07] MEDS: Famotidine 20 MG Tablet GT ×2 (07:46→20:04)
[2019-11-07] MEDS: QUEtiapine 25 MG Tablet 12.5 MG GT (07:46)
[2019-11-07] MEDS: Carvedilol 12.5 MG Tablet GT ×2 (07:46→20:07)
[2019-11-07] MEDS: Cefadroxil 500 MG CAPSULE 1000 MG GT ×2 (07:47→20:07)
[2019-11-07] MEDS: Thiamine Hydrochloride 100 MG Tablet GT (07:47)
[2019-11-07] MEDS: Aspirin 81 MG TAB.CHEW GT (07:47)
[2019-11-07] MEDS: Folic Acid 1 MG Tablet GT (07:47)
[2019-11-07] MEDS: cloNIDine HCl 0.2 MG Tablet GT ×2 (07:47→20:07)
[2019-11-07] MEDS: Menthol/Lanolin/Calamine/Znox 113 GM Tube 1 APPLIC TOPICAL ×2 (07:57→20:03)
--- NOTE | 2019-11-07 10:34 | CASEMGMT ---
Social Work IDT met with patient, and dtr via conference call for Team Meeting. Discussed patient's progress in therapy. Pt is min x2 for transfers, has great impulsivity, poor safety, can follow directions at times, but needs max cues. Pt can ambulate 30 ft on a good day minx1 but fatigues quickly. Pt completed 3 steps max 1 and min x1 but very fidgety and poor safety. Pt's leg strength is improving, mod x1-2 for shower transfers, max to total assist or ADLs. Pt continues to receive tube feeds, but ST to work on P.O. diet, but pt struggles with alertness, attention, left neglect, and awareness. Physician working on adjusting medications for alertness and sleeping at night. Pt to DC 11/11 - provided 3 SNFs to refer to. Referrals made to [facility] in [place], [facility] in [place]. Will continue to follow. MOHSEN GarciaW
[2019-11-07 10:55] VITALS: BMI 27.1
--- NOTE | 2019-11-07 12:04 | PN_ITS ---
Progress Note Day #3 of 7 cefadroxil for treatment of UTI Gus was seen on team rounds today. His Ángel participated by phone. Afebrile VSS - HR is well controlled Maintaining appropriate oxygen saturation on RA Oral intake - he took 470 cc of water on the Rhodes water protocol yesterday weight has been stable over the past week Discussed with nursing - no problems that need addressed Reviewed the PT/OT/ST notes Medication list reviewed. All lab was personally reviewed. The white blood cell count today is 5.5, down from 11.4 on 11/01/2019. Hemoglobin is 11.6 and platelets are within normal limits. Sodium and potassium are within normal limits. The BUN is 16 and the creatinine is 0.52, down from 0.62 on 11/01/2019. AST and ALT remain mildly elevated but the alkaline phosphatase is now normal. Magnesium and phosphorus are within normal limits. He is very awake today. He is participating in the conversation and even asked a question. HE thinks the TF causes him to have diarrhea......he is having BM's 2-3 times a day every day and he is on Jevity. alert, NAD Lungs - CTA H - irreg with controlled VR, no gallop abd - PEG site is clean without DC or erythema no peripheral edema no calf tenderness Impressions 1. post stroke debility - initially ischemic/embolic and then had hemorrhagic transformation after TPA 2. AF - rate controlled. Not on anticoagulation at this time 3. hx of chronic ETOH abuse/use 4. HTN - controlled 5. loose stool PRN Imodium continue with the increased dose of Seroquel at HS He is not on an antidepressant.........he denies felling depressed. He is impulsive and has poor safety awareness. He is progressing.....he is more aware of the left side and he will purposefully cook pickled meat the LUE with his right hand and move it.......He also lifts his left leg to assist in repositioning himself in the chair MRI of the brain to follow up for CVA and intracerebral bleed....if the bleed is stable will start an anticoagulant for tx of AF to prevent further embolic events Continue Modafinil in the AM EKG in the AM since the Seroquel dose has been increased Inpatient E&M: 39535 Subs Hosp L2
--- NOTE | 2019-11-07 12:17 | MRI_ITS ---
STUDY: MRI BRAIN WITHOUT CONTRAST REASON FOR EXAM: Male, 69 years old. f/u cva TECHNIQUE: Standardized multiplanar fat and water weighted pulse sequences were obtained. COMPARISON: None FINDINGS: Mild atrophy and periventricular white matter ischemic changes.. Diffuse gliosis in the right frontal and parietal regions demonstrating mild residual restricted diffusion consistent with subacute ischemic infarction in the distribution of the right middle cerebral artery. There are also focal subacute hemorrhagic lesions within the right frontal, temporal and parietal lobes possibly also representing focal infarct although other etiology is not excluded including focal space-occupying lesions. There is a tiny subacute subdural hematoma on the right. There also appears to be abnormal signal intensity within the occipital bone possibly hemorrhagic as well as there appears to be a linear low signal density possibly representing hairline fracture.. Normal bilateral basal ganglia. Normal thalami. There is no extra-axial fluid accumulation. Normal flow voids within the major intracranial circulation suggesting patency by spin echo criteria. Normal sella turcica, pituitary gland, infundibular stalk, optic chiasm and hypothalamus. Normal tectal plate and pineal gland. Normal midbrain, jack and medulla. Normal cerebellum. Normal basal cisterns. Normal bilateral temporal bones. Normal bilateral internal auditory canals. No demonstrated orbital abnormality, within the constraints of a routine brain study. Minor mucosal thickening within left ethmoid air cells.. Normal visualized soft tissue structures. Normal visualized upper cervical spine. MRI/Brain without Contrast IMPRESSION: Findings consistent with subacute infarct in the right frontal temporal and parietal lobes. Subacute hemorrhagic lesions within the right parietal and temporal lobes in association with a tiny subacute subdural hematoma on the right and possible hairline fracture of the occipital bone. Recommend correlation with prior studies when available and follow-up studies Electronically Signed: Wilver Mcfarland MD at 16:11 EDT , Service support ,
[2019-11-07] MEDS: LORazepam 0.5 MG Tablet GT (14:07)
[2019-11-07] MEDS: Tamsulosin HCl 0.4 MG Capsule PO (16:55)
[2019-11-07 18:56] VITALS: BP 138/87; PULSE 91; RESP 18; TEMP 36.5; O2SAT 97
[2019-11-07 20:00] VITALS: BMI 27.1
[2019-11-07] MEDS: QUEtiapine 25 MG Tablet 75 MG GT (20:01)
[2019-11-07] MEDS: MELATONIN 3 MG TABLET GT (20:06)
[2019-11-07] MEDS: Atorvastatin Calcium 40 MG Tablet GT (20:06)
--- NOTE | 2019-11-08 01:16 | NURSING ---
Pt overheard yelling out for toileting needs. Pt found in room by NEWSPAPER ILLUSTRATOR naked and had peed on the floor at bedside. Incontinence protocol performed. Pt claims he wants to get up but staff reminds pt of the time of night. Pt cleaned up with basin, soap and water. Staff now sitting in room with pt 1:1 to ensure pt safety. Pt seemed to settle down with staff at bedside to answer needs and reassure pt.
--- NOTE | 2019-11-08 03:17 | NURSING ---
1:1 STAFF WITH PT D/T PT AWAKE AND WANTING TO GET UP FOR THE DAY. PT ALERT. INCONTINENCE PROTOCOL PROVIDED. PT SETTING OFF CALL LIGHT WITH STAFF PRESENT AT BEDSIDE. PT REASSURED THAT STAFF IS WORKING TO ENSURE SAFETY. PT REQUIRING REPOSITIONING NEEDS PT WORKED HIS RT LEG (ACTIVE LEG) UNDER LESS MOBILE LEG TO SLING OVER BEDSIDE IN ATTEMPT TO AMBULATE OUT OF BED. 2 ABRASIONS TO LEFT DARLING RESULTED. PT REMINDED OF TIME OF DAY AND THAT OTHER PTS ARE TRYING TO SLEEP. STAFF ASSISTS WITH REPOSITIONING NEEDS AND PT WATCHING TV WITH EYE GLASSES IN PLACE.
--- NOTE | 2019-11-08 03:52 | NURSING ---
1:1 staff still present in room and pt must less restless. Pt has eyes closed and attempting to rest. Pt asks for room temp adjustment and then wrestles to remove blankets. Will continue to monitor.
[2019-11-08 07:00] VITALS: BP 104/71; PULSE 87; RESP 16; TEMP 36.8; O2SAT 97
[2019-11-08] MEDS: Modafinil 200 MG Tablet GT (07:25)
[2019-11-08] MEDS: Aspirin 81 MG TAB.CHEW GT (07:38)
[2019-11-08] MEDS: QUEtiapine 25 MG Tablet 12.5 MG GT (07:39)
[2019-11-08] MEDS: Carvedilol 12.5 MG Tablet GT ×2 (07:39→20:56)
[2019-11-08] MEDS: Folic Acid 1 MG Tablet GT (07:39)
[2019-11-08] MEDS: Cefadroxil 500 MG CAPSULE 1000 MG GT ×2 (07:39→20:56)
[2019-11-08] MEDS: cloNIDine HCl 0.2 MG Tablet GT ×2 (07:39→20:56)
[2019-11-08] MEDS: Thiamine Hydrochloride 100 MG Tablet GT (07:39)
[2019-11-08] MEDS: Famotidine 20 MG Tablet GT ×2 (07:40→20:56)
[2019-11-08] MEDS: Menthol/Lanolin/Calamine/Znox 113 GM Tube 1 APPLIC TOPICAL ×2 (11:37→21:00)
[2019-11-08 12:28] VITALS: BMI 27.1
--- NOTE | 2019-11-08 16:16 | CASEMGMT ---
Social Work Left messages with all three SNFs to inquire on referral. Will continue to follow. Kailee Woody MSW STOREROOM CLERK
[2019-11-08] MEDS: Tamsulosin HCl 0.4 MG Capsule PO (17:00)
[2019-11-08] MEDS: QUEtiapine 25 MG Tablet 75 MG GT (20:55)
[2019-11-08] MEDS: Atorvastatin Calcium 40 MG Tablet GT (20:56)
[2019-11-08] MEDS: Acetaminophen 650 MG/20 ML UDC GT (20:56)
[2019-11-08] MEDS: MELATONIN 3 MG TABLET GT (20:56)
[2019-11-08 21:09] VITALS: BP 111/72; PULSE 89; RESP 18; TEMP 36.9; O2SAT 96
[2019-11-08 23:10] VITALS: BMI 27.1
[2019-11-09 07:00] VITALS: BP 127/82; PULSE 78; RESP 16; TEMP 36.4; O2SAT 98
[2019-11-09] MEDS: Aspirin 81 MG TAB.CHEW GT (07:51)
[2019-11-09] MEDS: Thiamine Hydrochloride 100 MG Tablet GT (07:51)
[2019-11-09] MEDS: Folic Acid 1 MG Tablet GT (07:51)
[2019-11-09] MEDS: QUEtiapine 25 MG Tablet 12.5 MG GT (07:52)
[2019-11-09] MEDS: Famotidine 20 MG Tablet GT ×2 (07:52→20:10)
[2019-11-09] MEDS: cloNIDine HCl 0.2 MG Tablet GT ×2 (07:52→20:10)
[2019-11-09] MEDS: Carvedilol 12.5 MG Tablet GT ×2 (07:52→20:10)
[2019-11-09] MEDS: Cefadroxil 500 MG CAPSULE 1000 MG GT ×2 (07:52→20:10)
[2019-11-09] MEDS: Modafinil 200 MG Tablet GT (07:58)
[2019-11-09] MEDS: Menthol/Lanolin/Calamine/Znox 113 GM Tube 1 APPLIC TOPICAL ×2 (08:05→20:11)
[2019-11-09 13:03] VITALS: BMI 27.1
--- NOTE | 2019-11-09 14:38 | PN_ITS ---
Progress Note Day cefadroxil Gus slept well last night. He is receiving Seroquel at night for impulsiveness, suspected encephalopathy due to chronic alcohol use/abuse and to re-establish the sleep wake cycle. He is on Provigil in the AM to keep him awake for therapy. this has been very effective. He stay awake during the day between therapy sessions, he is more talkative and he does not decline to participate in therapy. Blood pressure is well controlled and he is maintaining appropriate oxygen saturation on room air. Now that he has been placed on a diet he has good oral intake. The p.o. intake was 1240 yesterday and today and is 1260 so far. He is incontinent of urine. MRI was reviewed......no acute changes. He continues to want to go home. Shakila when his is visiting him. She has been consistent in telling him that she can not take him home at this point because he is still requiring assistance that she would be unable to provide. He walked 20'x2 and 60'x1 with Belgica/ModA. He did STS from various surfaces today. doing dowel bryon to maintain the ROM in the LUE....has had increased tone in the biceps and the chest. He is still total assist for Lower body dressing and total assist for toileting. Still with left side neglect. doing better with naming objects in different categories Alert, doing better with therapy since he is no longer sleepy during the days. He is starting to sleep better at night. no longer with urinary urgency Lungs - CTA H - AF with good rate control abd - soft, NT, ND, PEG is without DC or redness around the PEG site no edema. He is more aware of his left side and uses the R hand to picket labor union the left arm to move it Impressions 1. post stroke debility 2. AF - rate controlled 3. HTN 4. on Seroquel to re-establish normal sleep wake cycle......he is used to being up at night and sleeping during the day. The combination of the Seroquel and the Provigil has really helped. He has not had any Haldol in the past several days and we have not had any issue with behavior. Continue therapy. Will ask his neurologist to review the recent MRI of the brain on 11/06 and if OK will start on Xarleto or Eliquis Inpatient E&M: 31443 Subs Hosp L2
[2019-11-09] MEDS: Tamsulosin HCl 0.4 MG Capsule PO (17:24)
[2019-11-09 20:00] VITALS: BP 118/72; PULSE 87; RESP 18; TEMP 37.2; O2SAT 97; BMI 27.1
[2019-11-09] MEDS: QUEtiapine 25 MG Tablet 75 MG GT (20:09)
[2019-11-09] MEDS: Atorvastatin Calcium 40 MG Tablet GT (20:09)
[2019-11-09 20:10] VITALS: PULSE 87; RESP 18; O2SAT 97
[2019-11-09] MEDS: MELATONIN 3 MG TABLET GT (20:11)
--- NOTE | 2019-11-10 00:40 | NURSING ---
reviewed and agree with HOME APPLIANCE WASHING MACHINE MECHANIC assessment and functional charting.
[2019-11-10] MEDS: Modafinil 200 MG Tablet GT (06:31)
[2019-11-10 08:21] VITALS: BP 111/73; PULSE 84; RESP 18; TEMP 36.6; O2SAT 98
[2019-11-10] MEDS: Aspirin 81 MG TAB.CHEW GT (08:22)
[2019-11-10] MEDS: Thiamine Hydrochloride 100 MG Tablet GT (08:22)
[2019-11-10] MEDS: Folic Acid 1 MG Tablet GT (08:22)
[2019-11-10] MEDS: cloNIDine HCl 0.2 MG Tablet GT ×2 (08:22→19:28)
[2019-11-10] MEDS: Cefadroxil 500 MG CAPSULE 1000 MG GT ×2 (08:23→19:29)
[2019-11-10] MEDS: Famotidine 20 MG Tablet GT ×2 (08:23→19:28)
[2019-11-10] MEDS: Carvedilol 12.5 MG Tablet GT ×2 (08:23→19:28)
[2019-11-10] MEDS: QUEtiapine 25 MG Tablet 12.5 MG GT (08:23)
[2019-11-10] MEDS: Menthol/Lanolin/Calamine/Znox 113 GM Tube 1 APPLIC TOPICAL ×2 (08:32→19:38)
--- NOTE | 2019-11-10 09:42 | CASEMGMT ---
Social Work [facility] and [facility] in [place] cannot accept pt. [facility] is still reviewing pt. Referred to [facility] whom are reviewing information. Referred to [facility] of [facility]. Will continue to follow. Kailee Woody, INTERN PLANT MAINTENANCE MECHANIC
[2019-11-10 10:01] VITALS: BMI 27.1
--- NOTE | 2019-11-10 11:38 | CASEMGMT ---
Social Work Patient accepted at [facility]. Notified . Cot transport scheduled through [facility] at 1 pm Plan: DC 11/11 to [facility] skilled MOHSEN Garcia
[2019-11-10] MEDS: Tamsulosin HCl 0.4 MG Capsule PO (16:13)
[2019-11-10] MEDS: QUEtiapine 25 MG Tablet 75 MG GT (19:28)
[2019-11-10] MEDS: Atorvastatin Calcium 40 MG Tablet GT (19:28)
[2019-11-10] MEDS: MELATONIN 3 MG TABLET GT (19:29)
[2019-11-10 19:41] VITALS: BP 117/63; PULSE 90; RESP 18; TEMP 36.6; O2SAT 98
[2019-11-11 00:49] VITALS: BMI 27.1
[2019-11-11] MEDS: Modafinil 200 MG Tablet GT (06:00)
[2019-11-11 07:00] VITALS: BP 131/78; PULSE 79; RESP 18; TEMP 36.8; O2SAT 98
[2019-11-11] MEDS: Thiamine Hydrochloride 100 MG Tablet GT (07:46)
[2019-11-11] MEDS: Folic Acid 1 MG Tablet GT (07:46)
[2019-11-11] MEDS: Aspirin 81 MG TAB.CHEW GT (07:47)
[2019-11-11] MEDS: Carvedilol 12.5 MG Tablet GT ×2 (07:48→20:40)
[2019-11-11] MEDS: Cefadroxil 500 MG CAPSULE 1000 MG GT (07:49)
[2019-11-11] MEDS: QUEtiapine 25 MG Tablet 12.5 MG GT (07:50)
[2019-11-11] MEDS: Famotidine 20 MG Tablet GT ×2 (07:50→20:41)
[2019-11-11] MEDS: cloNIDine HCl 0.2 MG Tablet GT ×2 (07:51→20:39)
[2019-11-11] MEDS: Menthol/Lanolin/Calamine/Znox 113 GM Tube 1 APPLIC TOPICAL ×2 (10:28→20:39)
--- NOTE | 2019-11-11 10:44 | NURSING ---
Pt just called out using Call light. Pt c/o SOB. This nurse recently in there and gave some fresh ice water. HOB at 45 degrees during and after drinking the water. Spo2 was 95% on RA, color of lips and face looked wnl and no distress. THis nurse lowered HOB down to 40 degrees. After a few min of pt being monitored by nurse, pt said he was feeling better. Will continue to monitor.
--- NOTE | 2019-11-11 11:05 | NURSING ---
Tube feed order and how often to Flush Faxed over to [facility] at this time. Asked to fax order over per MichelleSoftware Configuration Analyst.
[2019-11-11 11:16] LABS: Bedside Glucose 116 mg/dL (70-110)
--- NOTE | 2019-11-11 11:22 | NURSING ---
This nurse is aware that Blood sugar is 116.
[2019-11-11] MEDS: Magnesium Hydroxide 30 ML UDC GT (12:25)
[2019-11-11 12:50] VITALS: BMI 27.1
--- NOTE | 2019-11-11 14:31 | DCINST_ITS ---
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 SAMMY (obstructive sleep apnea) (Chronic) Status post insertion of percutaneous endoscopic gastrostomy (PEG) tube (Acute) Abnormal LFTs (Acute) Subarachnoid hemorrhage (Acute) Dysphagia (Acute) Coronary artery disease (Chronic) Presence of bare metal stent in right coronary artery (Acute) 2002 Edentulous (Chronic) Encephalopathy acute (Acute) due to CVA with agitation/behavioral disturbance requiring Seroquel Mass of perirectal soft tissue (Chronic) R buttock adjacent to the anus......tells me he had an infection drained at the site and there is a cicatrix there Stage II pressure sore (Acute) Abdomen-around the PEG tube QT prolongation (Acute) acute....not mentioned on the EKG done at [facility]. Possibly due to Seroquel. K and Mag are WNL. Urine retention (Acute) Left-sided neglect (Acute) Allergies/Adverse Reactions: Allergies alteplase Adverse Reaction (Severe, Verified 10/21/19 15:17) Bleeding intracrainal hemorrhage Medications to take at Discharge Albuterol Aerosols [Ventolin Aerosols] 3 ml INHALATION Q4H PRN PRN 10/19/19 Carvedilol [Coreg] 12.5 mg GT BID 10/19/19 Clonidine HCl [Catapres] 0.2 mg GT BID 10/19/19 Acetaminophen Liquid [Tylenol Liquid] 650 mg GT Q6H PRN PRN udc 11/11/19 Aspirin [Aspirin, Baby] 81 mg GT DAILYCM tab.chew 11/11/19 Atorvastatin Calcium [Lipitor] 40 mg GT QHS tab 11/11/19 Bisacodyl [Dulcolax] 10 mg RECTAL .PRN X 1 PRN suppos. 11/11/19 Famotidine [Pepcid] 20 mg GT BID tab 11/11/19 Folic Acid 1 mg GT DAILY@0800 tab 11/11/19 Jevity 1.5 250 ml GT TID PRN PRN #1 bottle 11/11/19 Magnesium Hydroxide [Milk Of Magnesia] 30 ml GT .PRN X 1 PRN udc 11/11/19 Melatonin 3 mg GT QHS tab 11/11/19 Menthol/Lanolin/Calamine/Znox [Calmoseptine Ointment] 1 applic TOPICAL BID tube 11/11/19 Modafinil [Provigil] 200 mg GT DAILY@0700 tab 11/11/19 Nitroglycerin (INPATIENT USE) [Nitrostat] 0.4 mg SUBLINGUAL Q5M PRN tab.subl 11/11/19 Quetiapine Fumarate [Seroquel] 75 mg GT DAILY@2000 tab 11/11/19 Tamsulosin HCl [Flomax] 0.4 mg PO DAILY@1730 cap 11/11/19 Thiamine Hydrochloride [Vitamin B1] 100 mg GT DAILYCM tab 11/11/19 Primary Care Physician: DEN LOUIS [Other] Test Results: Test results from this visit will be discussed in further detail at your follow- up appointment, if applicable.
--- NOTE | 2019-11-11 14:42 | TREXTCAR_ITS ---
- Diet 11/07/19 11:42 Diet: Regular Diet Food consistency:: Puree Liquid Consistency:: Regular/Thin Is pt able to select menu?: No Diet Comments: Direct Supervision w/ assist; seated @ 90 degrees, straws ok, meds w/purees - Routine Orders/Code Status Enema Type: Fleetz Enema Frequency: Daily PRN Suppository Type: Dulcolax 10mg Suppository Frequency: Daily PRN O2 Liters per Minute: 1-2 O2 Frequency: PRN Keep PO Greater than or Equal to (%): 90 Code Status: Full Code - Wound(s) left carmona Wound Type: Abrasion peg site Wound Type: Surgical Incision lt foot Wound Type: torn toenails left medial carmona Wound Type: Abrasion left distal carmona Wound Type: Abrasion - Therapies Weight Bearing: Full weight bearing Extremity Affected:: Left Upper Physical Therapy: Eval and Treat Occupational Therapy: Eval and Treat Speech Therapy: Eval and Treat - Problem/Diagnosis (1) Atrial fibrillation Status: Acute Comment: new diagnosis - rate controlled Current Visit: Yes (2) Status post administration of tPA (rtPA) in a different facility within the last 24 hours prior to admission to current facility Status: Acute Comment: 10/07/19 Current Visit: Yes (3) Hypertension Status: Chronic Current Visit: Yes (4) Stenosis of left vertebral artery Status: Chronic Comment: without infarction Current Visit: Yes (5) Intracranial hemorrhage Status: Acute Comment: following TPA Current Visit: Yes (6) Alcohol dependence Status: Chronic Current Visit: Yes (7) 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 Current Visit: Yes (8) SAMMY (obstructive sleep apnea) Status: Chronic Current Visit: Yes (9) Status post insertion of percutaneous endoscopic gastrostomy (PEG) tube Status: Acute Current Visit: Yes (10) Abnormal LFTs Status: Acute Current Visit: Yes (11) Subarachnoid hemorrhage Status: Acute Comment: following TPA Current Visit: Yes (12) Dysphagia Status: Acute Current Visit: Yes (13) Coronary artery disease Status: Chronic Current Visit: Yes (14) Presence of bare metal stent in right coronary artery Status: Chronic Comment: 2003 Current Visit: Yes (15) Edentulous Status: Chronic Current Visit: Yes (16) Encephalopathy acute Status: Acute Comment: due to CVA with agitation/behavioral disturbance requiring Seroquel Current Visit: Yes (17) Mass of perirectal soft tissue Status: Chronic Comment: R buttock adjacent to the anus......tells me he had an infection drained at the site and there is a cicatrix there Current Visit: Yes (18) Stage II pressure sore Status: Acute Comment: Abdomen-around the PEG tube Current Visit: Yes (19) QT prolongation Status: Resolved Comment: acute....not mentioned on the EKG done at [facility]. Possibly due to Seroquel. K and Mag are WNL. Current Visit: Yes (20) Urine retention Status: Resolved Current Visit: Yes (21) Left-sided neglect Status: Acute Current Visit: Yes (22) Normochromic normocytic anemia Status: Acute Current Visit: No - Allergies/Procedures Done in Hospital Allergies/Adverse Reactions: Allergies alteplase Adverse Reaction (Severe, Verified 10/21/19 15:17) Bleeding intracrainal hemorrhage Procedures: None - Type of Care/Length of Stay Estimated LOS: Convalescent Care Less Than 30 days Type of Care Needed: Skilled Rehab Potential: Good Prognosis: Good - Additional Orders/Day of Discharge Additional Orders: He is impulsive and does not have good safety awareness H&P will serve as current which was dated: 10/20/19 Day of Discharge: 11/12/19 - Dietary and Speech Recommendations Dietitian Recommendations/Changes: Continue regular diet until adequate PO intake at meals is established. 250mL bolus feed of Jevity 1.5 if PO intake <50% at meals. Flush w/ 80mL H2O before and after bolus. Speech Linguistic Eval Summary: Orientation: Pt oriented to safe, , and year. Pt able to name his (Pati) and two kids (Wilver and Alfonso). Follow ing 1-step directions: 60%. L neglect present: Pt able to identify 3/10 numbers on page, all on the far right side. Automatic speech tasks: 1-10 w/ 100%, days of the week 2/7, months 012. Confrontational namin% (5/5 attempted - falling asleep during task). Word list: 3 animals in one minute. Pt with dysarthria with approx. 60% intelligibility at the word level. Pt with slowed rate, low volume, poor oral motility, and slurred speech. Pt unable to locate or push call light given max cues. Plan for ongoing cognitive assessment. Pt easily fatigued on this date and required max cues to participate in various language/cognition tasks. - Follow Up Care Primary Care Physician: DEN LOUIS [Other] Please Follow Up With: neurology
--- NOTE | 2019-11-11 14:50 | PCM.DC.SUM ---
Discharge Date and Diagnosis Date of Admission: 10/19/19 Date of Discharge: 11/12/19 - Primary Discharge Diagnosis Acute Problems: Active Problems Debility due to CVA Atrial fibrillation (Acute) new diagnosis - rate controlled Embolic CVA R MCA Status post administration of tPA (rtPA) in a different facility within the last 24 hours prior to admission to current facility (Acute) 10/07/19 Intracranial hemorrhage (Acute) following TPA Subarachnoid hemorrhage (Acute) following TPA Internal carotid artery occlusion (Acute) presumed embolic Status post insertion of percutaneous endoscopic gastrostomy (PEG) tube (Acute) Abnormal LFTs (Acute) Dysphagia (Acute) Encephalopathy acute (Acute) due to CVA with agitation/behavioral disturbance requiring Seroquel - Agitation and behavior disturbance have resolved Stage II pressure sore (Acute) - resolved Abdomen-around the PEG tube Left-sided neglect (Acute) - improved N/N anemia - Secondary Discharge Diagnosis Chronic Problems: Chronic Problems Sleep-wake disorder (Chronic) - 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 GERD (gastroesophageal reflux disease) (Chronic) Tobacco dependence due to cigarettes (Chronic) Hypertension (Chronic) Stenosis of left vertebral artery (Chronic) without infarction Alcohol dependence (Chronic) SAMMY (obstructive sleep apnea) (Chronic) Coronary artery disease (Chronic) Presence of bare metal stent in right coronary artery (Chronic) 2002 Edentulous (Chronic) Mass of perirectal soft tissue (Chronic) R buttock adjacent to the anus......tells me he had an infection drained at the site and there is a cicatrix there Low HDL Mild pulmonary HTN with a RV systolic pressure estimated at 34 on TTE at [facility] in October of 2019 Hospital Course and Treatment Imaging Results: Clinical Impression(s) from Imaging Studies Chest X-Ray 10/28/19 00:35 IMPRESSION: No acute cardiopulmonary disease. at 0209 Reported and signed by: Christiano Jaffe MD Electronically Signed: Christiano Jaffe, at 2:08 EDT Tel , Service support , Brain MRI 11/07/19 12:17 IMPRESSION: Findings consistent with subacute infarct in the right frontal temporal and parietal lobes. Subacute hemorrhagic lesions within the right parietal and temporal lobes in association with a tiny subacute subdural hematoma on the right and possible hairline fracture of the occipital bone. Recommend correlation with prior studies when available and follow-up studies Electronically Signed: Wilver Mcfarland MD at 16:11 EDT , Service support , Laboratory Last Values WBC 5.5 K/mm3 (4.4-11.0) 11/07/19 05:30 RBC 3.90 M/mm3 (4.6-6.2) L 11/07/19 05:30 Hgb 11.6 g/dL (13.0-16.5) L 11/07/19 05:30 Hct 35.7 % (40-54) L 11/07/19 05:30 MCV 91.5 fL (80-94) 11/07/19 05:30 MCH 29.7 pg (27.0-32.0) 11/07/19 05:30 MCHC 32.5 g/dL (32-36) 11/07/19 05:30 RDW Std Deviation 44.2 fl (35.1-43.9) H 11/07/19 05:30 RDW Coeff of Misty 13.3 % (11.6-14.6) 11/07/19 05:30 Plt Count 170 K/mm3 (150-450) 11/07/19 05:30 MPV 10.9 fl (6.2-12.0) 11/07/19 05:30 Immature Gran % (Auto) 1.100 % (0.0-0.9) H 11/07/19 05:30 Neut % (Auto) 48.3 % (47-70) 11/07/19 05:30 Lymph % (Auto) 37.4 % (19-41) 11/07/19 05:30 [place] % (Auto) 9.4 % (0-10) 11/07/19 05:30 Eos % (Auto) 3.6 % (0-5) 11/07/19 05:30 Baso % (Auto) 0.2 % (0-1) 11/07/19 05:30 Absolute Neuts (auto) 2.7 X10^3/uL (2.0-7.7) 11/07/19 05:30 Absolute Lymphs (auto) 2.06 X10^3/uL (0.83-4.51) 11/07/19 05:30 Nucleated RBC % 0 % (0-5) 11/07/19 05:30 Sodium 136 mmol/L (136-145) 11/07/19 05:30 Potassium 3.9 mmol/L (3.5-5.1) 11/07/19 05:30 Chloride 100 mmol/L (98-107) 11/07/19 05:30 Carbon Dioxide 28.0 mmol/L (21.0-32.0) 11/07/19 05:30 Anion Gap 8 (5-15) 11/07/19 05:30 BUN 16 mg/dL (7-18) 11/07/19 05:30 Creatinine 0.52 mg/dL (0.70-1.30) L 11/07/19 05:30 Estim Creat Clear Calc 76.52 ml/min 11/07/19 05:30 Est GFR (MDRD) Af Amer 203 mL/min (>60) 11/07/19 05:30 Est GFR (MDRD) Non-Af 168 mL/min (>60) 11/07/19 05:30 BUN/Creatinine Ratio 30.9 RATIO (10-20) H 11/07/19 05:30 Glucose 97 mg/dL (74-106) 11/07/19 05:30 Hemoglobin A1c 5.5 % (3.8-5.6) 10/24/19 06:30 Calcium 9.0 mg/dL (8.5-10.1) 11/07/19 05:30 Phosphorus 4.4 mg/dL (2.5-4.9) 11/07/19 05:30 Magnesium 2.1 mg/dL (1.6-2.6) 11/07/19 05:30 Total Bilirubin 0.40 mg/dL (0.20-1.00) 11/07/19 05:30 AST 49 U/L (15-37) H 11/07/19 05:30 ALT 94 U/L (16-61) H 11/07/19 05:30 Alkaline Phosphatase 111 U/L (45-117) 11/07/19 05:30 Troponin I < 0.015 ng/mL (<0.045) 10/28/19 06:45 Total Protein 7.1 g/dL (6.4-8.2) 11/07/19 05:30 Albumin 2.9 g/dL (3.2-5.0) L 11/07/19 05:30 Globulin 4.2 g/dL (2.2-4.2) 11/07/19 05:30 Albumin/Globulin Ratio 0.7 RATIO (0.9-2.4) L 11/07/19 05:30 Triglycerides 102 mg/dL (-199) 10/21/19 05:25 Cholesterol 96 mg/dL (200) 10/21/19 05:25 LDL Cholesterol 53 mg/dL (0-130) 10/21/19 05:25 VLDL Cholesterol 20 mg/dL (5-40) 10/21/19 05:25 HDL Cholesterol 23 mg/dL (40-) L 10/21/19 05:25 Urine Color Yellow (Yellow) 11/03/19 20:34 Urine Clarity Turbid (Clear) 11/03/19 20:34 Urine pH 8.0 (5.0 - 8.0) 11/03/19 20:34 Ur Specific [place] 1.010 (1.002-1.030) 11/03/19 20:34 Urine Protein 30 mg/dl (Negative) H 11/03/19 20:34 Urine Glucose (UA) Normal mg/dl (Normal) 11/03/19 20:34 Urine Ketones Negative mg/dl (Negative) 11/03/19 20:34 Urine Occult Blood 50 /ul (Negative) H 11/03/19 20:34 Urine Nitrite Positive (Negative) H 11/03/19 20:34 Urine Bilirubin Negative mg/dL (Negative) 11/03/19 20:34 Urine Urobilinogen 8 mg/dl (Normal) H 11/03/19 20:34 Ur Leukocyte Esterase 500 /ul (Negative) H 11/03/19 20:34 Urine RBC 5-10 SEEN /hpf (0-5) 11/03/19 20:34 Urine WBC 50-100 SEEN /hpf (0-5) 11/03/19 20:34 Ur Squamous Epith Cells 0-5 SEEN /hpf (0-5) 11/03/19 20:34 Amorphous Sediment 2+ PHOS 10/20/19 19:40 Urine Bacteria 2+ /hpf (None Seen) 11/03/19 20:34 Urine Mucus 0 SEEN /hpf (<or=2+) 11/03/19 20:34 COVID-19 (KIMBER) Negative (Not Detect) 11/09/19 14:00 POC Glucose 116 mg/dL (70-110) H 11/11/19 11:10 Microbiology 11/03/19 20:34 Urine, Catheterized Urine Culture - Final Presumptive E. coli 10/20/19 19:40 Urine Catheter - Catheter Urine Culture - Final Culture exhibits no growth. none Operations: None Procedures: None Summary of Care Provided: Gus Canseco is a 69 year old M with a past medical history of hypertension, alcohol dependence, nicotine dependence (quit smoking and now is using Nicorette gum) , coronary artery disease with history of inferior wall MS and bare-metal stent to the right coronary artery in 2002 and a recent R MCA embolic CVA due to new onset AF. On 10/07/19 he had a fall at home and struck his head. He presented to the ED with left side weakness and a non-contrasted CT brain showed no hemorrhage. The initial NIH was 6. He received TPA and then had an intracerebral hemorrhage and SAH. He was transferred to the neuro intensive care unit at [facility]. No intervention was indicated. He was noted to be in AF and he had no hx of AF prior to the stroke. Troponin was elevated. He was seen by cardiology and had a stress test that was negative for ischemia. A TTE showed an EF of 55% with an RVSP of 34 which is consistent with mild pulmonary HTN. EKG showed LAHB, PVC's and an old IWMI. He developed an encephalopathy with behavioral disturbance and was placed on Seroquel. He had severe dysphagia and a PEG tube was inserted. He was transferred to the IPRU at [facility] on 10/19/19 for 3 hours of therapy daily to restore him at or near his prior level of function/independence. 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 This did not work with the rehab schedule. Seroquel was increased at night to help him sleep but, he still stayed up at night and then was sleepy all day. He was refusing therapy and did poorly. He was started on Provigil and he is now very alert during the day and has done much better with therapy over the past week. We discontinued the dose of Seroquel in the day. He is now sleeping good at night and we have had no behavior issues in the past 9 days. He did get a few doses of Haldol early in the admission but, he has not had any for at least a week and in fact it has been discontinued. He did well in therapy but, he is not yet to the point where his can care for him at home. He is now eating and is currently on a pureed diet with thin liquids. He is generally taking 50-75% of his meals but, if the intake is less than 50% he gets 250 cc of Jevity 1.5. He is still having left side neglect which is deepa noticeable when he is reading. He requires moderate cues/visual model to complete oral motor exercises. He is more aware of his left upper extremity and he will use his right hand/arm to lift his left arm and reposition it. He is able to ascend and descend 5 steps, step to step. He required assistance approximately 75% of the time to elevate the left foot. He was able to stand up from a sitting position with contact-guard assist. He is still requiring total assistance to eat, toilet, don and doff socks and shoes and transfer to the toilet. He ambulkated 10' with a quad cane the day prior to DC. He was transferred to retirement at [facility] on 11/12/19. He will be following up with his PCP Dr. Den Lassiter and with neurology. He received smoking cessation and ETOH abstention during his admission and we are hopeful that he will continue to be smoke free and alcohol free. Gus had an MRI on 11/07/2019. This is 1 month following hemorrhagic transformation of an acute embolic stroke to a hemorrhagic stroke following TPA. At the time of discharge we are still awaiting confirmation from the neurologist at [facility] to start anticoagulation. We requested that the MRI's from [facility] and [facility] be compared. there were no acute changes on the MRI at at [facility] but, we do not have a comparison film to make sure the hematomas are resolving. Alert, doing better with therapy since he is no longer sleepy during the days. He is starting to sleep better at night. No longer with urinary urgency. He is outgoing and friendly and has no behavior issues at the time of DC Lungs - CTA H - AF with good rate control abd - soft, NT, ND, PEG is without DC or redness around the PEG site no edema. 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 He is still requiring assistance to move the Left foot when ascending and descending steps. Requiring cues to scan to the left when reading. This note was generated with [employer] dictation software. It may contain incorrect words, spelling, and punctuation that were not noted in checking the note before signing. - Physical Exam Vitals/I&O's: Vital Signs Temp Pulse Resp BP Pulse Ox 98.2 F 79 18 131/78 H 98 11/11/19 07:00 11/11/19 07:00 11/11/19 07:00 11/11/19 07:00 11/11/19 07:00 Oxygen Delivery Method Room Air Weight: 173 lb 8.061 oz Body Mass Index (BMI) 27.1 Intake and Output for Last 24 Hours 11/09/19 11/10/19 11/11/19 23:59 23:59 23:59 Intake Total 1960 / 1960 1440 / 1440 1220 / 1220 Output Total 1550 / 1550 1425 / 1425 400 / 400 Balance 410 / 410 15 / 15 820 / 820 Laboratory Results 11/11/19 11:10: POC Glucose 116 H Current Medications Acetaminophen (Tylenol Liquid) 650 mg GT Q6H PRN PRN PRN Reason: Pain Score 1-02/10 Last Admin: 11/08/19 20:56 Dose: 650 mg Documented by: Albuterol Sulfate (Ventolin Aerosols) 2.5 mg INHALATION Q4H PRN PRN PRN Reason: SOB/Wheezing Aspir[facility]in, [facility]) [facility] Last Admin: 11/11/19 07:47 Dose: 81 mg Documented by: Atorvastatin Calcium (Lipitor) 40 mg GT QHS [facility] Last Admin: 11/10/19 19:28 Dose: 40 mg Documented by: Bisacodyl (Dulcolax) 10 mg RECTAL .PRN X 1 PRN PRN Reason: Constipation Calamine/Phenol (Calmoseptine Ointment) 1 applic TOPICAL BID [facility]; Protocol Last Admin: 11/11/19 10:28 Dose: 1 applicatio Documented by: Carvedilol (Coreg) 12.5 mg GT BID [facility] Last Admin: 11/11/19 07:48 Dose: 12.5 mg Documented by: Clonidine (Catapres) 0.2 mg GT BID [facility] Last Admin: 11/11/19 07:51 Dose: 0.2 mg Documented by: Enteral Nutritional Formula (Jevity 1.5) 250 ml GT TIDCM [facility] Last Admin: 11/11/19 12:27 Dose: Not Given Documented by: Famotidine (Pepcid) 20 mg GT BID [facility] Last Admin: 11/11/19 07:50 Dose: 20 mg Documented by: Folic Acid (Folic Acid) 1 mg GT DAILY@0800 [facility] Last Admin: 11/11/19 07:46 Dose: 1 mg Documented by: Magnesium Hydroxide (Milk Of Magnesia) 30 ml GT .PRN X 1 PRN PRN Reason: Constipation Last Admin: 11/11/19 12:25 Dose: 30 ml Documented by: Melatonin (Melatonin) 3 mg GT QHS [facility] Last Admin: 11/10/19 19:29 Dose: 3 mg Documented by: Modafinil (Provigil) 200 mg GT DAILY@0700 [facility] Last Admin: 11/11/19 06:00 Dose: 200 mg Documented by: Nitroglycerin (Nitrostat) 0.4 mg SUBLINGUAL Q5M PRN PRN Reason: CARDIAC/CHEST PAIN Last Admin: 10/28/19 00:32 Dose: 0.4 tab Documented by: Quetiapine Fumarate (Seroquel) 12.5 mg GT DAILY [facility] Last Admin: 11/11/19 07:50 Dose: 12.5 mg Documented by: Quetiapine Fumarate (Seroquel) 75 mg GT DAILY@1999 [facility] Last Admin: 11/10/19 19:28 Dose: 75 mg Documented by: Sodium Chloride () 10 - 40 ml IV UD PRN PRN Reason: SALINE FLUSH Last Admin: 10/21/19 23:12 Dose: 10 ml Documented by: Tamsulosin HCl (Flomax) 0.4 mg PO DAILY@1730 [facility] Last Admin: 11/10/19 16:13 Dose: 0.4 mg Documented by: Thiamine HCl (Vitamin B1) 100 mg GT DAILYCM [facility] Last Admin: 11/11/19 07:46 Dose: 100 mg Documented by: Home Medications: Medications to take at Discharge Albuterol Aerosols [Ventolin Aerosols] 3 ml INHALATION Q4H PRN PRN 10/19/19 Carvedilol [Coreg] 12.5 mg GT BID 10/19/19 Clonidine HCl [Catapres] 0.2 mg GT BID 10/19/19 Acetaminophen Liquid [Tylenol Liquid] 650 mg GT Q6H PRN PRN udc 11/11/19 Aspirin [Aspirin, Baby] 81 mg GT DAILYCM tab.chew 11/11/19 Atorvastatin Calcium [Lipitor] 40 mg GT QHS tab 11/11/19 Bisacodyl [Dulcolax] 10 mg RECTAL .PRN X 1 PRN suppos. 11/11/19 Famotidine [Pepcid] 20 mg GT BID tab 11/11/19 Folic Acid 1 mg GT DAILY@0800 tab 11/11/19 Jevity 1.5 250 ml GT TID PRN PRN #1 bottle 11/11/19 Magnesium Hydroxide [Milk Of Magnesia] 30 ml GT .PRN X 1 PRN udc 11/11/19 Melatonin 3 mg GT QHS tab 11/11/19 Menthol/Lanolin/Calamine/Znox [Calmoseptine Ointment] 1 applic TOPICAL BID tube 11/11/19 Modafinil [Provigil] 200 mg GT DAILY@0700 tab 11/11/19 Nitroglycerin (INPATIENT USE) [Nitrostat] 0.4 mg SUBLINGUAL Q5M PRN tab.subl 11/11/19 Quetiapine Fumarate [Seroquel] 75 mg GT DAILY@2000 tab 11/11/19 Tamsulosin HCl [Flomax] 0.4 mg PO DAILY@1730 cap 11/11/19 Thiamine Hydrochloride [Vitamin B1] 100 mg GT DAILYCM tab 11/11/19 Primary Care Physician: DEN LOUIS [Other] Please Follow Up With: neurology Minutes spent on discharge:: 45 Patient Condition:: Good Medical Necessity - Tobacco Use Smoking Status: Former smoker Tobacco Use: Cigarettes Meaningful Use Info Meaningful Use Diagnoses (Choose all that apply): Ischemic CVA - CVA Therapy Assessed for PT,OT and/or ST?: Yes - Ischemic Stroke Antithrombotic order at d/c?: Yes Dx of Atrial fib/flutter?: Yes Anticoagulant at discharge?: No Reason anticoagulant not ordered: Medical Contraindication - we are awaiting confirmation from the neurologist after reviewing the MRI done 11/07/19 to start anticoagulation Statins at discharge?: Yes Primary Dx Acute Ischemic CVA?: Yes IV tPA ordered during stay?: No Reason IV t-PA not ordered: Procedure not Indicated - he received TPA at the acute hospital prior to his admission to rehab and had hemorrhagic transformation following TPA Inpatient E&M: 08046 Disch Hosp
[2019-11-11 16:46] LABS: Bedside Glucose 85 mg/dL (70-110)
--- NOTE | 2019-11-11 17:16 | NURSING ---
This nurse brought pt his dinner tray. Pt refused to eat it. This nurse reminded pt that if he refused nurse would have to give him jevity via his peg tube. you can't its gone. This nurse looked at peg tube and peg tube is still very much intact and working. Showed Mr. Canseco that peg tube was still present and functioning. Pt agreed to have the Jevity.
[2019-11-11] MEDS: Tamsulosin HCl 0.4 MG Capsule PO (17:20)
[2019-11-11] MEDS: Jevity 1.5. 1,000 ML Bottle 250 ML GT (17:21)
[2019-11-11] MEDS: Bisacodyl 10 MG Suppository RECTAL (18:15)
--- NOTE | 2019-11-11 19:01 | NURSING ---
After getting a suppository, pt had a BM. Sample sent to lab for occult stool.
[2019-11-11 19:18] VITALS: BP 130/75; PULSE 78; RESP 16; TEMP 36.6; O2SAT 99
[2019-11-11 20:37] VITALS: BMI 27.1
[2019-11-11] MEDS: QUEtiapine 25 MG Tablet 75 MG GT (20:38)
[2019-11-11] MEDS: Atorvastatin Calcium 40 MG Tablet GT (20:40)
[2019-11-11] MEDS: MELATONIN 3 MG TABLET GT (20:41)
[2019-11-12] MEDS: Modafinil 200 MG Tablet GT (06:02)
[2019-11-12] MEDS: Folic Acid 1 MG Tablet GT (07:25)
[2019-11-12] MEDS: cloNIDine HCl 0.2 MG Tablet GT (07:25)
[2019-11-12] MEDS: Thiamine Hydrochloride 100 MG Tablet GT (07:25)
[2019-11-12] MEDS: Carvedilol 12.5 MG Tablet GT (07:25)
[2019-11-12] MEDS: Aspirin 81 MG TAB.CHEW GT (07:25)
[2019-11-12] MEDS: QUEtiapine 25 MG Tablet 12.5 MG GT (07:26)
[2019-11-12] MEDS: Menthol/Lanolin/Calamine/Znox 113 GM Tube 1 APPLIC TOPICAL (07:26)
[2019-11-12] MEDS: Famotidine 20 MG Tablet GT (07:26)
[2019-11-12 08:29] VITALS: BP 127/82; PULSE 83; RESP 16; TEMP 36.7; O2SAT 98
[2019-11-12 09:27] VITALS: BMI 27.1
[2019-11-12 13:51] VITALS: BP 127/82; PULSE 83; RESP 16; TEMP 36.7; O2SAT 98
--- NOTE | 2019-11-12 13:53 | NURSING ---
Discharged to [facility]. Attempted to call report and fax DC instructions. Their phone was not working, kept getting recording that all circuits were busy. Sent report sheet with discharge instructions.
== END 2019-11-12 13:10 | disposition skilled nursing facility (03) | DRG 56 ==
PROVIDERS: Hospitalist; Admitting Provider Internal Medicine; Visit Provider Internal Medicine
DX: I69.354 Hemiplegia and hemiparesis following cerebral infarction affecting left non-dominant side (principal); I60.9 Nontraumatic subarachnoid hemorrhage, unspecified; N39.0 Urinary tract infection, site not specified; G93.49 Other encephalopathy; F10.239 Alcohol dependence with withdrawal, unspecified; I10 Essential (primary) hypertension; I48.91 Unspecified atrial fibrillation; G47.33 Obstructive sleep apnea (adult) (pediatric); Z93.1 Gastrostomy status; I25.10 Atherosclerotic heart disease of native coronary artery without angina pectoris; L89.892 Pressure ulcer of other site, stage 2; I69.391 Dysphagia following cerebral infarction; I69.398 Other sequelae of cerebral infarction; R13.12 Dysphagia, oropharyngeal phase; F91.9 Conduct disorder, unspecified; Z87.891 Personal history of nicotine dependence; K62.89 Other specified diseases of anus and rectum; I25.2 Old myocardial infarction; I69.322 Dysarthria following cerebral infarction; E86.0 Dehydration; N40.1 Benign prostatic hyperplasia with lower urinary tract symptoms; R33.8 Other retention of urine; G47.20 Circadian rhythm sleep disorder, unspecified type; K21.9 Gastro-esophageal reflux disease without esophagitis; I27.20 Pulmonary hypertension, unspecified; B96.20 Unspecified Escherichia coli [E. coli] as the cause of diseases classified elsewhere
CPT/HCPCS: 36415; 70551; 71045; 80048; 80053; 80061; 81001; 82274; 82962; 83036; 83735; 84100; 84484; 85025; 87086; 87088; 87186; 87635; 92507; 92523; 92526; 92610; 93005; 97110; 97112; 97116; 97129; 97130; 97140; 97162; 97166; 97530; 97535; 97542; 97802; 97803; 99251; G2023; J7030; J7040; A4216; G0463; U0003